=== PATIENT | female | born 1955 | race Caucasian/White ===

== ENCOUNTER → 2019-07-15 14:54 | Outpatient (BNVA) | payer MEDICAID, SELFPAY | PROVIDERS: Family Provider Family Medicine; PCP Family Medicine; Visit Provider Nurse Practitioner | DX: F43.12 Post-traumatic stress disorder, chronic (principal); F03.90 Unspecified dementia, unspecified severity, without behavioral disturbance, psychotic disturbance, mood disturbance, and anxiety | CPT/HCPCS: 99213 ==

== ENCOUNTER 2019-08-19 16:11 | Outpatient (CLI) | payer MEDICAID, SELFPAY | END 2019-08-19 16:12 | disposition home or self-care (01) | LOC: SPT 16:11 | PROVIDERS: Family Provider Family Medicine; PCP Family Medicine; Visit Provider Podiatrist Foot & Ankle Surgery | DX: M25.871 Other specified joint disorders, right ankle and foot (principal) | CPT/HCPCS: L3100 ==

== ENCOUNTER 2019-09-26 01:14 | Emergency (ER) | payer MEDICAID, SELFPAY ==
[2019-09-26 01:28] VITALS: BP 143/93; PULSE 101; RESP 18; TEMP 36.2; O2SAT 94; BMI 28.7
--- NOTE | 2019-09-26 01:31 | XR_ITS ---
WS: [id number] XR chest 1V portable [id number] REASON FOR EXAM: cough/congestion FINDINGS: Granulomas seen in the left side of the mediastinum. The heart is not enlarged. The lung fuentes appear to be well aerated. There is no pneumonia, pleural effusion, pulmonary edema, no mass effect. The hilum is and apices are normal. Postop changes of the lower cervical spine with a plate in position. No osseous abnormalities. XR/XR chest 1V portable [id number] IMPRESSION: Granuloma along the mediastinum on the left. No active cardiopulmonary changes.
--- NOTE | 2019-09-26 01:32 | ECG_ITS ---
Measurements Intervals [place] Rate: 92 P: 54 AR: 217 QRS: 17 QRSD: 110 T: 84 QT: 366 QTc: 453 SINUS RHYTHM WITH FIRST DEGREE AV BLOCK NONSPECIFIC ST & T-WAVE ABNORMALITY Compared to ECG 06/19/2019 08:13:54 No significant changes Electronically Signed On 09-26-2019 12:45:01 CDT by Mitchell Nobles [id number]
--- NOTE | 2019-09-26 01:33 | ED_ITS ---
HPI - Abdominal Pain General: Chief Complaint: Abdominal Pain Stated Complaint: n/v Time Seen by Provider: 09/26/19 01:22 Source: patient and family Mode of arrival: ambulatory Limitations: no limitations History of Present Illness: HPI narrative: Patient is a 63-year-old female who presents to ED today with multiple medical complaints. She states she has had nausea and vomiting over the past 2 days and reports a total of 5-6 episodes of vomiting. She describes the vomit as nonbloody and nonbilious. She is complaining of abdominal pain and chest pains. When asked to point to the location she points to her epigastrium. Patient states she also feels short of breath. She states she woke up in the middle of the night gasping for air . States she has also had a cough. She often refers to her chest pains but again points more towards her upper abdomen. Patient reports a history of CHF. Patient denies any changes to her bowel movements or urinary habits. She has not been running fevers. Associated Symptoms: Reports nausea and vomiting; Denies change in bowel habits, change in stool character, chills, diarrhea, dysuria, fever(s), hematochezia, melena and syncope Review of Systems Const: Denies: fever, chills, body aches, change in appetite, change in weight, fatigue or malaise Eyes: Denies: change in vision, blurry vision or photophobia ENMT: Denies: throat pain, enlarged tonsils or painful swallowing Card: Reports: chest pain; Denies: palpitations, irregular heart rhythm, edema, swelling of feet/ankles, lightheadedness, syncope, pre-syncope, shortness of breath when lying down, leg pain with exertion or bluish discoloration of hands/feet Resp: Reports: shortness of breath, non-productive cough and chest congestion; Denies: pain on inspiration or coughing up blood GI: Reports: abdominal pain, nausea and vomiting; Denies: diarrhea, change in bowel habits, rectal itching, change in stool character, blood in stool, black tarry stool, mucus in stool, white/light colored stool or fatty stool : Denies: flank pain, difficulty urinating, painful urination, urinary frequency or urinary urgency Musc: Denies: neck pain or back pain Skin/Breast: Denies: rash Neuro: Denies: headache, numbness in extremities, weakness in extremities or changes in sensation PFSH ED PFSH: Medical History (Updated 09/26/19 @ 03:10 by VU Lemus) CHF (congestive heart failure) Early onset Alzheimer's dementia Hypertension Post-traumatic stress disorder, chronic Type 2 diabetes mellitus Unspecified dementia without behavioral disturbance Surgical History (Updated 08/23/19 @ 23:01 by Amador Rodríguez DPM) H/O removal of cyst History of partial hysterectomy Social History Smoking and tobacco status: never smoked Alcohol intake: never Current occupational status: unemployed Physical Exam Const: COMMON NORMALS: no apparent distress, average body habitus, oriented x3, no limitations, healthy appearing, alert and well nourished Chest: COMMONS NORMALS: inspection of chest normal and palpation of chest normal Resp: COMMON NORMALS: normal respiratory effort and clear to auscultation bilaterally AUSCULTATION: clear to auscultation bilaterally Cardio: COMMON NORMALS: regular rate and regular rhythm RATE: regular rate RHYTHM: regular rhythm GI: COMMON NORMALS: normal to inspection, nondistended, normoactive bowel sounds, soft to palpation, no hepatosplenomegaly and no masses PALPATION: Yes soft, Yes tender (epigastric ) and Yes no hepatosplenomegaly Extremity: COMMON NORMALS: no clubbing, cyanosis or edema, no calf tenderness and no pedal edema Neuro: COMMON NORMALS: oriented x3 SENSORIUM/ORIENTATION: Yes alert Skin: COMMON NORMALS: no rashes or lesions noted GENERAL SKIN EXAM: no rashes or lesions noted Course Vital Signs: Vital signs: Vital Signs Temperature 97.2 F L 09/26/19 01:28 Pulse Rate 100 09/26/19 02:48 Respiratory Rate 18 09/26/19 02:48 Blood Pressure 136/102 09/26/19 02:48 Pulse Oximetry 96 09/26/19 02:48 MDM - Abdominal Pain MDM Narrative: Medical decision making narrative: pt ambulated out of ED w/o assistance Lab Data: Labs: Lab Results 09/26/19 09/26/19 09/26/19 Range/Units 01:45 01:45 01:45 WBC 6.8 (4.0-10.0) 10^3/ uL RBC 4.26 (4.1-5.3) 10^6/u L Hgb 12.1 (11.5-15.3) g/dL Hct 35.9 L (37.0-47.0) % MCV 84.3 (81-99) fL MCH 28.4 (28.0-34.0) pg MCHC 33.7 (30.0-36.0) g/dL RDW 12.5 (12.1-15.1) % Plt Count 174 (130-400) 10^3/c mm MPV 10.7 H (7.4-10.4) fL Neut % (Auto) 62.3 % Lymph % (Auto) 27.4 % Cocke % (Auto) 5.2 % Eos % (Auto) 4.4 % Baso % (Auto) 0.4 % Neut # (Auto) 4.2 (1.8-7.7) 10^3/u L Lymph # (Auto) 1.9 (0.8-4.8) 10^3/u L Cocke # (Auto) 0.4 (0.2-0.9) 10^3/u L Eos # (Auto) 0.3 (0.0-0.8) 10^3/u L Baso # (Auto) 0.0 (0.0-0.1) 10^3/u L Nucleated RBC % (a uto) 0 % Nucleated RBCs # 0.0 /100WBC Sodium 132 L (136-145) mmol/L Potassium 3.8 (3.5-5.1) mmol/L Chloride 97 L (98-107) mmol/L Carbon Dioxide 26 (22-29) mmol/L Anion Gap 12.8 (5-19) BUN 19 (8-23) mg/dL Creatinine 1.0 H (0.5-0.9) mg/dL GFR Calculation 55.8 L (90-130) mL/min Glucose 406 H (65-115) mg/dL POC Glucose (70-110) mg/dL Calculated Osmolal ity 288 (285-295) mOsm/k g Calcium 8.9 (8.5-10.5) mg/dL Total Bilirubin 0.3 (0.15-1.2) mg/dL AST 15 (0-32) U/L ALT 18 (0-33) U/L Alkaline Phosphata se 105 (35-105) IU/L Troponin T Gen 5 n g/L (0-10) ng/mL Total Protein 7.1 (6.6-8.7) g/dL Albumin 3.6 (3.5-5.2) g/dL Globulin 3.5 (1.3-4.6) g/dL Lipase 78 H (13-60) U/L Urine Color (Yellow) Urine Appearance (CLEAR) Urine pH (5-7) Ur Specific Gravit y (1.005-1.030) Urine Protein (Negative) Urine Glucose (UA) (Normal) Urine Ketones (Negative) Urine Blood (Negative) Urine Nitrate (Negative) Urine Bilirubin (NEGATIVE) Urine Urobilinogen (Negative) mg/dL Ur Leukocyte Yina ase (Negative) Urine RBC (0-2) /hpf Urine WBC (0-5) /hpf Ur Squamous Epith Cells (0-5) Ur Renal Epithelia l Cell /hpf Urine Bacteria (NONE) Serum Ketones Negative (Negative) 09/26/19 09/26/19 09/26/19 Range/Units 01:45 02:33 03:07 WBC (4.0-10.0) 10^3/ uL RBC (4.1-5.3) 10^6/u L Hgb (11.5-15.3) g/dL Hct (37.0-47.0) % MCV (81-99) fL MCH (28.0-34.0) pg MCHC (30.0-36.0) g/dL RDW (12.1-15.1) % Plt Count (130-400) 10^3/c mm MPV (7.4-10.4) fL Neut % (Auto) % Lymph % (Auto) % Cocke % (Auto) % Eos % (Auto) % Baso % (Auto) % Neut # (Auto) (1.8-7.7) 10^3/u L Lymph # (Auto) (0.8-4.8) 10^3/u L Cocke # (Auto) (0.2-0.9) 10^3/u L Eos # (Auto) (0.0-0.8) 10^3/u L Baso # (Auto) (0.0-0.1) 10^3/u L Nucleated RBC % (a uto) % Nucleated RBCs # /100WBC Sodium (136-145) mmol/L Potassium (3.5-5.1) mmol/L Chloride (98-107) mmol/L Carbon Dioxide (22-29) mmol/L Anion Gap (5-19) BUN (8-23) mg/dL Creatinine (0.5-0.9) mg/dL GFR Calculation (90-130) mL/min Glucose (65-115) mg/dL POC Glucose 326 (70-110) mg/dL Calculated Osmolal ity (285-295) mOsm/k g Calcium (8.5-10.5) mg/dL Total Bilirubin (0.15-1.2) mg/dL AST (0-32) U/L ALT (0-33) U/L Alkaline Phosphata se (35-105) IU/L Troponin T Gen 5 n g/L 10 (0-10) ng/mL Total Protein (6.6-8.7) g/dL Albumin (3.5-5.2) g/dL Globulin (1.3-4.6) g/dL Lipase (13-60) U/L Urine Color Yellow (Yellow) Urine Appearance Hazy A (CLEAR) Urine pH 5 (5-7) Ur Specific Gravit y 1.020 (1.005-1.030) Urine Protein Neg (Negative) Urine Glucose (UA) 4+ H (Normal) Urine Ketones Negative (Negative) Urine Blood Neg (Negative) Urine Nitrate Negative (Negative) Urine Bilirubin Neg (NEGATIVE) Urine Urobilinogen Norm (Negative) mg/dL Ur Leukocyte Yina ase Negative (Negative) Urine RBC 0-4 H (0-2) /hpf Urine WBC None (0-5) /hpf Ur Squamous Epith Cells 0-4 H (0-5) Ur Renal Epithelia l Cell 0 /hpf Urine Bacteria Trace (NONE) Serum Ketones (Negative) Imaging Data ^: CXR: My impression: NAD L hip/pelvis XR: My impression: NAD L femur XR: My impression: NAD Discharge Plan Discharge Patient Disposition: Home, Self-Care Clinical Impression: Abdominal pain, epigastric Uncontrolled diabetes mellitus Qualifiers: Diabetes mellitus type: type 2 Glycemic state: with hyperglycemia Qualified Code(s): E11.65 - Type 2 diabetes mellitus with hyperglycemia Condition: Stable Prescriptions: No Action (DME) Toe alignment splint Qty: 1 RF: 0 ropinirole 1 mg tablet 1 mg PO BID RF: 0 simvastatin 20 mg tablet 20 mg PO ONCE RF: 0 glimepiride 1 mg tablet 1 mg PO QAM RF: 0 aripiprazole [Abilify] 2 mg tablet 2 mg PO ONCE Qty: 30 RF: 2 citalopram [Celexa] 20 mg tablet 20 mg PO ONCE Qty: 30 RF: 2 prazosin 1 mg capsule 1 mg PO DAILY Qty: 30 RF: 2 lorazepam 0.5 mg tablet 0.5 mg PO DAILY PRN (Reason: anxiety) Qty: 30 RF: 2 zaleplon 5 mg capsule 5 mg PO .at bed Qty: 30 RF: 2 amitriptyline 75 mg tablet 75 mg PO .at bed Qty: 30 RF: 0 Discharge Orders: Discharge Order (Routine); Ordered 09/26/19 Ordered By: Melissa Johnson Referrals: Maritza Butterfield MD [Primary Care Provider] - Activity Restrictions/Additional Instructions: Follow up with primary care at your scheduled appointment next week. Return to ED for any concerns you may have until then. Coding Level of Care Code ED Food Safety Technician for [employer] Fwd Exam Detailed
[2019-09-26] MEDS: sodium chloride 0.9% 1,000 ML 999 ML IV (01:53)
[2019-09-26] MEDS: ondansetron 2 mg/ML SDV 2 mL 4 MG IVP (01:53)
[2019-09-26 02:06] LABS: Basophils % 0.4 %; Eosinophils # 0.3 10^3/uL (0.0-0.8); Eosinophils % 4.4 %; Hematocrit 35.9 % (37.0-47.0); Hemoglobin 12.1 g/dL (11.5-15.3); Lymphocytes # 1.9 10^3/uL (0.8-4.8); Lymphocytes % 27.4 %; Mean Corpuscular HGB Conc 33.7 g/dL (30.0-36.0); Mean Corpuscular Hemoglobin 28.4 pg (28.0-34.0); Mean Corpuscular Volume 84.3 fL (81-99); Mean Platelet Volume 10.7 fL (7.4-10.4); Monocytes # 0.4 10^3/uL (0.2-0.9); Monocytes % 5.2 %; Neutrophils # 4.2 10^3/uL (1.8-7.7); Neutrophils % 62.3 %; Nucleated Red Blood Cells % 0 %; Platelet Count 174 10^3/cmm (130-400); Red Blood Count 4.26 10^6/uL (4.1-5.3); Red Cell Distribution Width 12.5 % (12.1-15.1); White Blood Count 6.8 10^3/uL (4.0-10.0)
[2019-09-26 02:20] LABS: Alanine Aminotransferase 18 U/L (0-33); Albumin Level 3.6 g/dL (3.5-5.2); Alkaline Phosphatase 105 IU/L (35-105); Anion Gap 12.8 (5-19); Aspartate Amino Transferase 15 U/L (0-32); Blood Urea Nitrogen 19 mg/dL (8-23); Calcium 8.9 mg/dL (8.5-10.5); Carbon Dioxide 26 mmol/L (22-29); Chloride 97 mmol/L (98-107); Globulin 3.5 g/dL (1.3-4.6); Glomerular Filtration Rate 55.8 mL/min (90-130); Glucose 406 mg/dL (65-115); Lipase 78 U/L (13-60); Osmolality Calculated 288 mOsm/kg (285-295); Potassium 3.8 mmol/L (3.5-5.1); Sodium 132 mmol/L (136-145); Total Bilirubin 0.3 mg/dL (0.15-1.2); Total Protein 7.1 g/dL (6.6-8.7)
[2019-09-26 02:25] LABS: Ketone (Acetest) Serum Negative (Negative)
[2019-09-26 02:48] VITALS: BP 136/102; PULSE 100; RESP 18; O2SAT 96
[2019-09-26] MEDS: lidocaine 2% viscous 15 ML, aluminum-mag hydrox-simethicon 30 ML, sucralfate oral liq 1 GM PO (02:52)
[2019-09-26 02:53] LABS: Add Urine Microscopic? YES; Bilirubin Urine Neg (NEGATIVE); Blood Urine Neg (Negative); Glucose Urine UA 4+ (Normal); Ketones Urine Negative (Negative); Leukocyte Esterase Urine Negative (Negative); Nitrate Urine Negative (Negative); Protein Urine Neg (Negative); Urine Appearance Hazy (CLEAR); Urine Color Yellow (Yellow); Urobilinogen Urine Norm (Negative); pH Urine 5 (5-7)
[2019-09-26 02:56] LABS: Troponin T (5th) Once 10 ng/mL (0-10)
[2019-09-26 03:06] LABS: Add Urine Culture? No; Bacteria Urine TRACE; RBC Urine 0-4 /hpf (0-2); Renal Epithelial Cells Urine 0 /hpf; Squamous Epithelial Cell Urine 0-4 (0-5)
[2019-09-26 03:10] LABS: Glucose Point of Care 326 mg/dL (70-110)
[2019-09-26 03:22] VITALS: BP 129/79; PULSE 95; RESP 18; O2SAT 96
== END 2019-09-26 03:23 | disposition home or self-care (01) ==
PROVIDERS: Emergency Provider Physician Assistant; Family Provider Family Medicine; PCP Family Medicine
DX: R10.13 Epigastric pain (principal); I11.0 Hypertensive heart disease with heart failure; I50.9 Heart failure, unspecified; G30.0 Alzheimer's disease with early onset; F02.80 Dementia in other diseases classified elsewhere, unspecified severity, without behavioral disturbance, psychotic disturbance, mood disturbance, and anxiety; E11.65 Type 2 diabetes mellitus with hyperglycemia; Z79.84 Long term (current) use of oral hypoglycemic drugs
CPT/HCPCS: 12345; 36415; 36416; 71045; 80053; 81001; 82009; 82962; 83690; 84484; 85025; 93005; 93010; 96361; 96372; 96374; 96375; 99283; 99284; A9270; J1815; J2405; J7030

== ENCOUNTER → 2019-11-05 08:13 | Outpatient (BNVA) | payer MEDICAID, SELFPAY | PROVIDERS: Family Provider Family Medicine; PCP Family Medicine; Visit Provider Nurse Practitioner | DX: F43.12 Post-traumatic stress disorder, chronic (principal); F03.90 Unspecified dementia, unspecified severity, without behavioral disturbance, psychotic disturbance, mood disturbance, and anxiety; F41.1 Generalized anxiety disorder | CPT/HCPCS: 99213 ==

== ENCOUNTER → 2020-01-15 12:15 | Outpatient (BNVA) | payer MEDICAID, SELFPAY | PROVIDERS: Family Provider Family Medicine; PCP Family Medicine; Visit Provider Specialist | DX: G30.0 Alzheimer's disease with early onset (principal); F02.80 Dementia in other diseases classified elsewhere, unspecified severity, without behavioral disturbance, psychotic disturbance, mood disturbance, and anxiety | CPT/HCPCS: 99213 ==

== ENCOUNTER → 2020-01-21 08:01 | Outpatient (BNVA) | payer MEDICAID, SELFPAY | PROVIDERS: Family Provider Family Medicine; PCP Family Medicine; Visit Provider Nurse Practitioner | DX: F43.12 Post-traumatic stress disorder, chronic (principal) | CPT/HCPCS: 99214 ==

== ENCOUNTER 2020-06-27 13:47 | Emergency (ER) | payer MEDICAID, SELFPAY ==
[2020-06-27 14:03] VITALS: BP 151/67; PULSE 66; RESP 16; TEMP 36.6; O2SAT 99; BMI 18.4
--- NOTE | 2020-06-27 14:32 | XRR_ITS ---
PROCEDURE INFORMATION: Exam: XR Ribs with PA Chest, 4 Views Exam date and time: 06/27/2020 2:43 PM Age: 64 years old Clinical indication: Injury or trauma; Fall; Rib area, bilateral; Blunt trauma; Additional info: Fall, chest pain TECHNIQUE: Imaging protocol: XR bilateral ribs 4 views with PA chest. COMPARISON: CR XR chest 1V portable [id number] 09/26/2019 1:40 AM FINDINGS: Lungs: The lungs are clear. Pleural space: Unremarkable. No pleural effusion. No pneumothorax. Heart/Mediastinum: The heart is enlarged. Diaphragm: There is unchanged elevation of the right hemidiaphragm. Bones/joints: There is a satisfactory appearance of the postoperative cervical spine. There is a subtle lucent line in the posterolateral right 7th rib concerning for subtle fracture versus skin fold. No acute fracture of the left ribs is identified. There are moderate degenerative changes in the spine. XR/XR ribs BI mn 4V w CXR1V [id number] IMPRESSION: There is a subtle lucent line in the posterolateral right 7th rib concerning for subtle fracture versus skin fold. No additional acute fracture. The lungs are clear.
--- NOTE | 2020-06-27 14:32 | CTR_ITS ---
PROCEDURE INFORMATION: Exam: CT Maxillofacial Without Contrast Exam date and time: 06/27/2020 2:44 PM Age: 64 years old Clinical indication: Injury or trauma; Blunt trauma (contusions or hematomas); Forehead and nose; Patient HX: Fall from standing hitting R side of face and nose C/O XAVIER denies loc; Additional info: Fall, facial injuries TECHNIQUE: Imaging protocol: Computed tomography images of the face without contrast. Radiation optimization: All CT scans at this facility use at least one of these dose optimization techniques: automated exposure control; mA and/or kV adjustment per patient size (includes targeted exams where dose is matched to clinical indication); or iterative reconstruction. COMPARISON: No relevant prior studies available. RADIATION DOSE METRICS: Total DLP (mGy-cm): 673.56 FINDINGS: Orbital cavity: Orbits are normal. Globes are unremarkable. Bones/joints: There are mildly impacted comminuted fractures of the distal nasal bones. There is a fracture of the distal nasal septum with deviation to the left. Bilateral orbital yoder are intact. The zygoma, pterygoids and mandible are intact. There is a satisfactory appearance of the postoperative changes in the cervical spine. Paranasal sinuses: There is a mucous retention cyst in the left maxillary sinus. There are no air-fluid levels in the sinuses. Soft tissues: There is soft tissue edema overlying the right face and nose. Dental: A few teeth are identified in the mandible and there is periapical lucency surrounding the posterior-most tooth on the right and the 2nd tooth left of midline image 12. Multiple dental caries are noted in the remaining teeth especially the posterior-most tooth on the right and the last 3 posterior teeth on the left. Probable smaller dental caries are noted in the remaining teeth in the mandible. CT/CT facial bones wo con* [id number] IMPRESSION: 1. There are mildly impacted comminuted fractures of the distal nasal bones. There is also a fracture of the distal nasal septum. 2. There is soft tissue edema overlying the right face and nose. 3. Multiple dental caries involving the remaining teeth in the mandible with 2 areas of periapical lucency. Radiation Dose CTDIVOL = (mGy): DLP = 673.56 (mGy-cm)
--- NOTE | 2020-06-27 14:32 | XRR_ITS ---
PROCEDURE INFORMATION: Exam: XR Bilateral Hips with Pelvis when Performed Exam date and time: 06/27/2020 2:43 PM Age: 64 years old Clinical indication: Injury or trauma; Fall; Blunt trauma (contusions or hematomas); Bilateral; Hip; Additional info: Fall, hip pain. TECHNIQUE: Imaging protocol: XR bilateral hips with pelvis when performed. Views: 2 views. COMPARISON: CR Pelvis AP 1 or 2 views* [id number] 08/03/2018 12:37 AM FINDINGS: Bones/joints: Unremarkable. No acute fracture. Unchanged mild degenerative changes left hip and moderate degenerative changes right hip with an os acetabula are noted. There is unchanged subtle deformity of the right superior and inferior pubic rami suspected be remote old fractures. Soft tissues: Unremarkable. XR/XR hip BI 2V wo/w pel [id number] IMPRESSION: No acute findings. Unchanged exam with stable degenerative changes.
--- NOTE | 2020-06-27 14:54 | ED_ITS ---
HPI - Fall General: Chief Complaint: Fall Stated Complaint: FELL, FACIAL INJURIES Time Seen by Provider: 06/27/20 14:08 Source: patient Mode of arrival: ambulatory Limitations: no limitations History of Present Illness: HPI Narrative: Patient is a 64-year-old lady and when she got up from a sitting position tripped over a table and fell face first on the carpet. She has some abrasions to the right side of her face. She denies any loss of consciousness. She is not on any anticoagulants. She has pain on her face especially her nose. She cannot remember the last time she had a tetanus vaccine. complaint: fall Onset (ago): hour(s) (1) Fall from: standing Place fall occurred: home Loss of consciousness: None Prolonged down time: no Symptoms prior to fall: none Context: tripped/slipped Location of injury: head Quality: sharp Associated symptoms-after fall: Denies abdominal pain, chest pain, confusion, difficulty walking, headache(s), hematuria, lightheadedness, neck pain, numbness, short of breath, vertigo or weakness Review of Systems General: Reports: 10 or more systems reviewed and unremarkable except in HPI and below Const: Denies: fever(s), chills or body aches Eyes: Denies: change in vision or blurry vision ENMT: Denies: throat pain, enlarged tonsils, odynophagia, hoarseness, mouth pain or swelling of lips/tongue Card: Denies: chest pain or lightheadedness Resp: Denies: dyspnea, productive cough or non-productive cough GI: Denies: abdominal pain : Denies: hematuria Musc: Denies: neck pain Skin/Breast: Denies: rash, pruritus or erythema Neuro: Denies: headache(s), difficulty walking, vertigo or confusion Endo: Denies: polyuria, polydipsia or tired all the time [facility] ED PFSH: Medical History (Updated 06/27/20 @ 16:30 by Reinaldo Herr MD, [facility] [place] CHF (congestive heart failure) Early onset Alzheimer's dementia Hypertension Post-traumatic stress disorder, chronic Type 2 diabetes mellitus Unspecified dementia without behavioral disturbance Surgical History (Reviewed 06/27/20 @ 14:59 by Reinaldo Herr MD, [facility] [place]) H/O removal of cyst History of partial hysterectomy Social History (Reviewed 06/27/20 @ 14:59 by Reinaldo Herr MD, [facility] [place]) Smoking and tobacco status: never smoked Alcohol intake: never Current occupational status: unemployed Physical Exam Const: COMMON NORMALS: no acute distress, average body habitus, patient oriented x3, no limitations, healthy appearing, alert and well nourished HENMT: COMMON NORMALS: normocephalic and moist oral mucous membranes; external nose not normal (abrasion) HEAD & SCALP: normocephalic and abrasion (right side of her face and forehead and nasal bridge) NOSE: Normal septum present (no septal hematoma) and Abnormal external nose present nasal abrasion and nasal tenderness; external nose not normal (abrasion) Eye: COMMON NORMALS: Equal, round and reactive pupils present, EOMs intact bilaterally, conjunctivae normal and no scleral icterus CONJUNCTIVA: Yes conjunctivae normal PUPIL: Yes Equal, round and reactive pupils present Neck/C-Spine: COMMON NORMALS: full ROM, supple, no meningeal signs, no JVD and No carotid bruits CERVICAL SPINE: Yes cervical ROM normal, No cervical ROM abnormal, No pain with cervical ROM and No Cervical spine tenderness Chest: COMMONS NORMALS: normal inspection of the chest CHEST: Yes localized rib tenderness with anteroposterior compression and Yes tenderness Resp: COMMON NORMALS: normal respiratory effort, No retractions, No use of accessory muscles, clear to auscultation bilaterally and percussion normal AUSCULTATION: clear to auscultation bilaterally PERCUSSION: percussion normal Cardio: COMMON NORMALS: no JVD, regular rate, regular rhythm, S1 normal heart sound present, S2 normal heart sound present, No gallops present (Cardio), No clicks present (Cardio), No murmurs present (Cardio), No rub (Cardio) and Peripheral pulses 2+ throughout RATE: regular rate RHYTHM: regular rhythm HEART SOUNDS: S1 normal heart sound present and S2 normal heart sound present PERIPHERAL PULSES: Peripheral pulses 2+ throughout GI: COMMON NORMALS: Normal to inspection, nondistended, normoactive bowel sounds present, Soft to palpation, non-tender, No hepatosplenomegaly present, no masses and no bruits PALPATION: Yes Soft to palpation and Yes No hepatosplenomegaly present Back/Pelvis: PELVIS: pain with lateral compression (tender with lateral compression.) Extremity: COMMON NORMALS: normal to inspection, full ROM, capillary refill normal, no calf tenderness and no pedal edema Neuro: COMMON NORMALS: patient oriented x3 SENSORIUM/ORIENTATION: Yes alert MENINGEAL SIGNS: Yes no meningeal signs Skin: COMMON NORMALS: no rashes or lesions noted, no wounds, turgor normal, no jaundice, no petechiae and no mottling GENERAL SKIN EXAM: no rashes or lesions noted and turgor normal Course Reevaluation(s): Reevaluation #1: Discussed her imaging findings with her as well as my conversation with the PA for maxillofacial surgery. Explained that she has nasal bone fractures as well as a possible rib fracture. Will discharge her home with a prescription for pain medication as well as instructions for nasal fractures. She will follow-up with the maxillofacial surgery provider on Monday at 10:30 AM in [place]. She voiced understanding and she is in agreement with the plan. Time: 16:12 Consultations: Consultation #1: Discussed the patient with Willow Garibay, a physician's public aid eligibility assistant to the maxillofacial surgeon chief [facility] division. She advised that the patient be seen in the office on Monday in their clinic at 10:30 AM. The patient will be seeing her. Patient is to have the usual precautions given to patient with nasal fractures. Time: 15:58 Vital Signs: Vital signs: Vital Signs Temperature 97.9 F 06/27/20 14:03 Pulse Rate 66 06/27/20 14:03 Respiratory Rate 18 06/27/20 16:58 Blood Pressure 151/67 06/27/20 14:03 Pulse Oximetry 99 06/27/20 14:03 MDM - Fall MDM Narrative: Medical decision making narrative: 64-year-old female patient w ho tripped and fell today. She sustained nasal bone and nasal septum fractures as well as a possible right seventh rib fracture. No other significant injuries and she had no septal hematoma. She is discharged home with a prescription for pain medication, is to follow-up with a maxillofacial surgeon on Monday at 10:30 AM, is given instructions on how to care for her nasal fractures as well as wound care for her abrasions. Medical Records: Attestation: I reviewed the patient's medical records. Imaging Data^: Other CT: Radiologist's impression: [address] [address] [address] Scan Report Signed Patient: Stacie Patten #: [id number] : 5Acct#:[id number] Age/Sex: 64 / FADM Date: 06/27/20 Loc: ERRoom/Bed: Attending Dr: Ordering Provider/Ordering MD: Reinaldo Herr MD, LUCIE Date of Service: 06/27/20 Procedure(s): CT facial bones wo con* [id number] Accession Number(s): [id number] Report Number: [id number] PROCEDURE INFORMATION: Exam: CT Maxillofacial Without Contrast Exam date and time: 06/27/2020 2:44 PM Age: 64 years old Clinical indication: Injury or trauma; Blunt trauma (contusions or hematomas); Forehead and nose; Patient HX: Fall from standing hitting R side of face and nose C/O XAVIER denies loc; Additional info: Fall, facial injuries TECHNIQUE: Imaging protocol: Computed tomography images of the face without contrast. Radiation optimization: All CT scans at this facility use at least one of these dose optimization techniques: automated exposure control; mA and/or kV adjustment per patient size (includes targeted exams where dose is matched to clinical indication); or iterative reconstruction. COMPARISON: No relevant prior studies available. RADIATION DOSE METRICS: Total DLP (mGy-cm): 673.56 FINDINGS: Orbital cavity: Orbits are normal. Globes are unremarkable. Bones/joints: There are mildly impacted comminuted fractures of the distal nasal bones. There is a fracture of the distal nasal septum with deviation to the left. Bilateral orbital yoder are intact. The zygoma, pterygoids and mandible are intact. There is a satisfactory appearance of the postoperative changes in the cervical spine. Paranasal sinuses: There is a mucous retention cyst in the left maxillary sinus. There are no air-fluid levels in the sinuses. Soft tissues: There is soft tissue edema overlying the right face and nose. Dental: A few teeth are identified in the mandible and there is periapical lucency surrounding the posterior-most tooth on the right and the 2nd tooth left of midline image 12. Multiple dental caries are noted in the remaining teeth especially the posterior-most tooth on the right and the last 3 posterior teeth on the left. Probable smaller dental caries are noted in the remaining teeth in the mandible. CT/CT facial bones wo con* [id number] IMPRESSION: 1. There are mildly impacted comminuted fractures of the distal nasal bones. There is also a fracture of the distal nasal septum. 2. There is soft tissue edema overlying the right face and nose. 3. Multiple dental caries involving the remaining teeth in the mandible with 2 areas of periapical lucency. Radiation Dose CTDIVOL = (mGy): DLP = 673.56 (mGy-cm) Dictated By:Bernice Victor Signed By:Lc Victor Date/Time:06/27/201516 DD/ 14 Xray Ortho: Radiologist's impression: [address] [address] XRay Report Signed Patient: Stacie Patten #: [id number] : 5Acct#:[id number] Age/Sex: 64 / FADM Date: 06/27/20 Loc: ERRoom/Bed: Attending Dr: Ordering Provider/Ordering MD: Reinaldo Herr MD, [facility] [place] Date of Service: 06/27/20 Procedure(s): XR hip BI 2V wo/w pel [id number] Accession Number(s): [id number] Report Number: [id number] PROCEDURE INFORMATION: Exam: XR Bilateral Hips with Pelvis when Performed Exam date and time: 06/27/2020 2:43 PM Age: 64 years old Clinical indication: Injury or trauma; Fall; Blunt trauma (contusions or hematomas); Bilateral; Hip; Additional info: Fall, hip pain. TECHNIQUE: Imaging protocol: XR bilateral hips with pelvis when performed. Views: 2 views. COMPARISON: CR Pelvis AP 1 or 2 views* [id number] 08/03/2018 12:37 AM FINDINGS: Bones/joints: Unremarkable. No acute fracture. Unchanged mild degenerative changes left hip and moderate degenerative changes right hip with an os acetabula are noted. There is unchanged subtle deformity of the right superior and inferior pubic rami suspected be remote old fractures. Soft tissues: Unremarkable. XR/XR hip BI 2V wo/w pel [id number] IMPRESSION: No acute findings. Unchanged exam with stable degenerative changes. Dictated By:Bernice Victor Signed By:Lc Victor Date/Time:06/27/20 152 DD/ 1520 Other Xray: Radiologist's impression: [address] [address] XRay Report Signed Patient: Stacie Patten #: [id number] : 5Acct#:[id number] Age/Sex: 64 / FADM Date: 06/27/20 Loc: ERRoom/Bed: Attending Dr: Ordering Provider/Ordering MD: Reinaldo Herr MD, [facility] [place] Date of Service: 06/27/20 Procedure(s): XR ribs BI mn 4V w CXR1V 35894 Accession Number(s): [id number] Report Number: [id number] PROCEDURE INFORMATION: Exam: XR Ribs with PA Chest, 4 Views Exam date and time: 06/27/2020 2:43 PM Age: 64 years old Clinical indication: Injury or trauma; Fall; Rib area, bilateral; Blunt trauma; Additional info: Fall, chest pain TECHNIQUE: Imaging protocol: XR bilateral ribs 4 views with PA chest. COMPARISON: CR XR chest 1V portable [id number] 09/26/2019 1:40 AM FINDINGS: Lungs: The lungs are clear. Pleural space: Unremarkable. No pleural effusion. No pneumothorax. Heart/Mediastinum: The heart is enlarged. Diaphragm: There is unchanged elevation of the right hemidiaphragm. Bones/joints: There is a satisfactory appearance of the postoperative cervical spine. There is a subtle lucent line in the posterolateral right 7th rib concerning for subtle fracture versus skin fold. No acute fracture of the left ribs is identified. There are moderate degenerative changes in the spine. XR/XR ribs BI mn 4V w CXR1V [id number] IMPRESSION: There is a subtle lucent line in the posterolateral right 7th rib concerning for subtle fracture versus skin fold. No additional acute fracture. The lungs are clear. Dictated By:Bernice Victor Signed By:Lc Victor Date/Time:06/27/20 152 DD/ 1523 Discharge Plan Discharge Patient Disposition: Home Clinical Impression: Fracture of nasal bone Qualifiers: Encounter type: initial encounter Fracture type: closed Qualified Code(s): S02.2XXA - Fracture of nasal bones, initial encounter for closed fracture Closed fracture of nasal septum Qualifiers: Encounter type: initial encounter Qualified Code(s): S02.2XXA - Fracture of nasal bones, initial encounter for closed fracture Fall Qualifiers: Encounter type: initial encounter Qualified Code(s): W19.XXXA - Unspecified fall, initial encounter Closed rib fracture Qualifiers: Encounter type: initial encounter Rib fracture type: single rib Laterality: right Qualified Code(s): S22.31XA - Fracture of one rib, right side, initial encounter for closed fracture Abrasion of face Qualifiers: Encounter type: initial encounter Qualified Code(s): S00.81XA - Abrasion of other part of head, initial encounter Condition: Stable Prescriptions: New Salix 5-325 mg tablet 1 tab PO Q8H PRN (Reason: nasal bone fracture) Qty: 20 RF: 0 Continued (DME) Toe alignment splint Qty: 1 RF: 0 glimepiride 1 mg tablet 1 mg PO QAM RF: 0 simvastatin 20 mg tablet 20 mg PO DAILY RF: 0 aspirin [Adult Aspirin Regimen] 81 mg tablet,delayed release (DR/EC) 81 mg PO DAILY RF: 0 furosemide [Lasix] 40 mg tablet 40 mg PO DAILY RF: 0 lisinopril 20 mg tablet 20 mg PO DAILY RF: 0 amitriptyline 100 mg tablet 100 mg PO .HS Qty: 30 RF: 2 aripiprazole [Abilify] 2 mg tablet 2 mg PO DAILY Qty: 30 RF: 2 citalopram [Celexa] 20 mg tablet 20 mg PO DAILY Qty: 30 RF: 2 lorazepam 0.5 mg tablet 0.5 mg PO DAILY PRN (Reason: anxiety) Qty: 30 RF: 2 prazosin 1 mg capsule 1 mg PO DAILY Qty: 30 RF: 2 ropinirole 1 mg tablet 1 mg PO BID Qty: 60 RF: 2 zaleplon 5 mg capsule 5 mg PO .at bed Qty: 30 RF: 2 memantine [Namenda] 10 mg tablet 10 mg PO BID Qty: 60 RF: 4 rivastigmine tartrate 4.5 mg capsule See Rx Instructions .ROUTE .COMPLEX Qty: 60 RF: 3 Discharge Orders: Discharge ED (Routine); Ordered 06/27/20 Ordered By: Reinaldo Herr Referrals: Maritza Butterfield MD [Primary Care Provider] - 4-7 days Discharge Diet: Usual diet Discharge Activity: Increase activity as tolerated Patient Instructions: Nasal Fracture (ED), Rib Fracture (ED), Abrasion (ED), Fall Prevention (ED) Activity Restrictions/Additional Instructions: Return for any new or worsening symptoms. Follow-up with the maxillofacial surgery at [facility] in [place] on Monday at 10:30 AM. You will follow with [facility] and the address is [address] [place] [address]. Their phone number is [phone]. Until you see them at [place] on Monday do not blow your nose, do not lean forward, obtain some [id number] nasal saline spray and use this to keep your nose moist and wet. You can apply ice to your nose to reduce the swelling. Clean your abrasions with soap and water every day and apply antibiotic ointment to the abrasions. Take the pain medication as needed for pain. Coding Level of Care Code ED Laboratory Animal Care Veterinarian for Chg Fwd Exam Comprehensive
[2020-06-27] MEDS: tetanus-dipt-pertussis 0.5 mL SDV IM (15:33)
[2020-06-27] MEDS: ketorolac 30 mg/mL INJ IM (16:17)
[2020-06-27] MEDS: neomycin-poly-bacitracin oint 0.9 gm Pkt 1 APPLIC TOPICAL (16:17)
[2020-06-27 16:58] VITALS: RESP 18
== END 2020-06-27 16:50 | disposition home or self-care (01) ==
PROVIDERS: Emergency Provider Family Medicine; PCP Family Medicine
DX: S02.2XXA Fracture of nasal bones, initial encounter for closed fracture (principal); S22.31XA Fracture of one rib, right side, initial encounter for closed fracture; S00.81XA Abrasion of other part of head, initial encounter; Z79.82 Long term (current) use of aspirin; I11.0 Hypertensive heart disease with heart failure; I50.9 Heart failure, unspecified; G30.9 Alzheimer's disease, unspecified; F02.80 Dementia in other diseases classified elsewhere, unspecified severity, without behavioral disturbance, psychotic disturbance, mood disturbance, and anxiety; E11.9 Type 2 diabetes mellitus without complications; Z23 Encounter for immunization; W18.09XA Striking against other object with subsequent fall, initial encounter
CPT/HCPCS: 12345; 70486; 71111; 73521; 73522; 90471; 90715; 96372; 99281; 99283; J1885

== ENCOUNTER 2020-08-02 00:10 | Emergency (ER) | payer MEDICAID, SELFPAY ==
[2020-08-02 00:11] VITALS: BP 100/67; PULSE 59; RESP 16; TEMP 36.5; O2SAT 95; BMI 28.8
--- NOTE | 2020-08-02 00:26 | CTR_ITS ---
PROCEDURE INFORMATION: Exam: CT Abdomen And Pelvis With Contrast Exam date and time: 08/02/2020 1:05 AM Age: 64 years old Clinical indication: Other: Diarrhea; Abdominal pain; Localized; Upper; Prior surgery; Surgery date: 6+ months; Surgery type: Gb, appy; Additional info: Abd pain, diarrhea TECHNIQUE: Imaging protocol: Computed tomography of the abdomen and pelvis with intravenous contrast. Radiation optimization: All CT scans at this facility use at least one of these dose optimization techniques: automated exposure control; mA and/or kV adjustment per patient size (includes targeted exams where dose is matched to clinical indication); or iterative reconstruction. Contrast material: VISI; Contrast volume: 95 ml; Contrast route: INTRAVENOUS (IV); COMPARISON: CT abdomen pelvis w con* [id number] 05/13/2018 12:07 PM RADIATION DOSE METRICS: Total DLP (mGy-cm): 559.4 FINDINGS: Liver: Normal. No mass. Gallbladder and bile ducts: Normal. No calcified stones. No ductal dilation. Pancreas: Normal. No ductal dilation. Spleen: Normal. No splenomegaly. Adrenal glands: Normal. No mass. Kidneys and ureters: Left kidney nonobstructive calyceal stone. Stomach and bowel: Diverticulosis without diverticulitis. Left colon mild wall thickening may reflect a colitis or be due to nondistention depending on the clinical scenario. Appendix: No evidence of appendicitis. Intraperitoneal space: Unremarkable. No free air. No significant fluid collection. Vasculature: Unremarkable. No abdominal aortic aneurysm. Lymph nodes: Unremarkable. No enlarged lymph nodes. Urinary bladder: Unremarkable as visualized. Reproductive: Unremarkable as visualized. Bones/joints: Unremarkable. No acute fracture. Soft tissues: Unremarkable. CT/CT abdomen pelvis w con* [id number] IMPRESSION: 1. Left colon mild wall thickening may reflect a colitis or be due to nondistention depending on the clinical scenario. 2. Left kidney nonobstructive calyceal stone. 3. Diverticulosis without diverticulitis. Radiation Dose CTDIVOL = (mGy): DLP = 559.4 (mGy-cm)
--- NOTE | 2020-08-02 00:27 | W.ED.ABDPA2 ---
HPI - Abdominal Pain General: Chief Complaint: Abdominal Pain Stated Complaint: n/v/d abd and abd pain Time Seen by Provider: 08/02/20 00:20 Source: patient Mode of arrival: ambulatory Limitations: no limitations History of Present Illness: HPI narrative: Patient comes in with generalized abdominal pain and diarrhea starting this afternoon. Patient reports worsening symptoms. Patient also reports headache. Patient appears Mildly unwell. Patient appears in mild pain. Associated Symptoms: Reports diarrhea Review of Systems General: Reports: 10 or more systems reviewed and unremarkable except in HPI and below GI: Reports: abdominal pain and diarrhea Neuro: Reports: headache(s) PFSH ED PFSH: Medical History (Updated 08/02/20 @ 01:47 by LAURO Rasmussen) CHF (congestive heart failure) Early onset Alzheimer's dementia Hypertension Post-traumatic stress disorder, chronic Type 2 diabetes mellitus Unspecified dementia without behavioral disturbance Surgical History (Reviewed 06/27/20 @ 14:59 by Reinaldo Herr MD, [facility] [place]) H/O removal of cyst History of partial hysterectomy Social History (Reviewed 06/27/20 @ 14:59 by Reinaldo Herr MD, [facility] [place]) Smoking and tobacco status: never smoked Alcohol intake: never Current occupational status: unemployed Physical Exam Const: COMMON NORMALS: no acute distress and patient oriented x3 GENERAL APPEARANCE: cooperative HENMT: COMMON NORMALS: normocephalic, TM's normal bilaterally and Normal external nose present HEAD & SCALP: normal to inspection and normocephalic NOSE: Normal external nose present TYMPANIC MEMBRANE: TM's normal bilaterally MOUTH: Normal oral and palatal mucosa present THROAT: posterior oropharynx normal Eye: GENERAL EYE: appearance normal, both eyes and all related structures Neck/C-Spine: COMMON NORMALS: full ROM Lymph: LYMPHATIC: no lymphadenopathy noted Chest: COMMONS NORMALS: normal inspection of the chest Resp: COMMON NORMALS: normal respiratory effort EFFORT & INSPECTION: Yes able to speak in complete sentences Cardio: COMMON NORMALS: regular rate and regular rhythm RATE: regular rate RHYTHM: regular rhythm GI: COMMON NORMALS: Soft to palpation PALPATION: Yes Soft to palpation and Yes Tenderness to palpation present (GI) Back/Pelvis: COMMON NORMALS: thoracic and lumbar spine normal to inspection Extremity: COMMON NORMALS: normal to inspection Neuro: COMMON NORMALS: patient oriented x3 and moves all extremities Psych: COMMON NORMALS: mental status grossly normal and cooperative Skin: COMMON NORMALS: no rashes or lesions noted GENERAL SKIN EXAM: no rashes or lesions noted Course Vital Signs: Vital signs: Vital Signs Temperature 97.7 F 08/02/20 00:11 Pulse Rate 88 08/02/20 01:35 Respiratory Rate 18 08/02/20 01:35 Blood Pressure 122/67 08/02/20 01:35 Pulse Oximetry 94 08/02/20 01:35 MDM - Abdominal Pain MDM Narrative: Medical decision making narrative: Patient comes in today for complaints of diarrhea. Patient reports has started this afternoon but seem to have worsened with more discomfort this evening. Exam no abdomen is soft with some hyperactive bowel sounds. Skin is warm and dry. Respirations are even lungs are clear to auscultation. Vital signs were normal. Differential diagnosis includes not limited to diverticulitis, colitis, bowel obstruction, gastroenteritis. CT and CMP were unremarkable except for some mild dehydration with a creatinine of 1.5 versus chronic kidney disease. Patient was given 1 L of IV fluids. CT scan was done for further evaluation and noted mild colitis but otherwise no signs of diverticulitis or other acute disease. Patient was given 1 dose of Cipro and dose of Flagyl to treat the colitis. Patient was given a dose of ketorolac 15 mg and 5 mg of Reglan for headache. Patient was then given 1 dose of Lomotil for complaints of abdominal cramping. We will continue on oral Flagyl and Cipro for 5 days. Patient reported understanding and agreed to plan. Lab Data: Labs: Lab Results 08/02/20 08/02/20 Range/Units 00:15 00:15 WBC 8.7 (4.0-10.0) 10^3/ uL RBC 4.33 (4.1-5.3) 10^6/u L Hgb 12.5 (11.5-15.3) g/dL Hct 37.1 (37.0-47.0) % MCV 85.7 (81-99) fL MCH 28.9 (28.0-34.0) pg MCHC 33.7 (30.0-36.0) g/dL RDW 12.4 (12.1-15.1) % Plt Count 236 (130-400) 10^3/c mm MPV 11.2 H (7.4-10.4) fL Neut % (Auto) 56.3 % Lymph % (Auto) 33.3 % [place] % (Auto) 6.8 % Eos % (Auto) 2.5 % Baso % (Auto) 0.8 % Neut # (Auto) 4.86 (1.8-7.7) 10^3/u L Lymph # (Auto) 2.9 (0.8-4.8) 10^3/u L [place] # (Auto) 0.6 (0.2-0.9) 10^3/u L Eos # (Auto) 0.2 (0.0-0.8) 10^3/u L Baso # (Auto) 0.1 (0.0-0.1) 10^3/u L Nucleated RBC % (a uto) 0 % Nucleated RBCs # 0.0 /100WBC Sodium 139 (136-145) mmol/L Potassium 4.2 (3.5-5.1) mmol/L Chloride 101 (98-107) mmol/L Carbon Dioxide 26 (22-29) mmol/L Anion Gap 16.2 (5-19) BUN 22 (8-23) mg/dL Creatinine 1.5 H (0.5-0.9) mg/dL GFR Calculation 34.9 L (90-130) mL/min Glucose 145 H (65-115) mg/dL Calculated Osmolal ity 294 (285-295) mOsm/k g Calcium 9.5 (8.5-10.5) mg/dL Total Bilirubin 0.3 (0.15-1.2) mg/dL AST 15 (0-32) U/L ALT 17 (0-33) U/L Alkaline Phosphata se 86 (35-105) IU/L Total Protein 6.9 (6.6-8.7) g/dL Albumin 3.9 (3.5-5.2) g/dL Globulin 3.0 (1.3-4.6) g/dL Lipase 85 H (13-60) U/L Discharge Plan Discharge Patient Disposition: Home Clinical Impression: Colitis Condition: Stable Prescriptions: New ciprofloxacin HCl 500 mg tablet 500 mg PO BID Qty: 10 RF: 0 metronidazole 500 mg tablet 500 mg PO BID Qty: 10 RF: 0 No Action (DME) Toe alignment splint Qty: 1 RF: 0 glimepiride 1 mg tablet 1 mg PO QAM RF: 0 simvastatin 20 mg tablet 20 mg PO DAILY RF: 0 aspirin [Adult Aspirin Regimen] 81 mg tablet,delayed release (DR/EC) 81 mg PO DAILY RF: 0 furosemide [Lasix] 40 mg tablet 40 mg PO DAILY RF: 0 lisinopril 20 mg tablet 20 mg PO DAILY RF: 0 amitriptyline 100 mg tablet 100 mg PO .HS Qty: 30 RF: 2 aripiprazole [Abilify] 2 mg tablet 2 mg PO DAILY Qty: 30 RF: 2 citalopram [Celexa] 20 mg tablet 20 mg PO DAILY Qty: 30 RF: 2 lorazepam 0.5 mg tablet 0.5 mg PO DAILY PRN (Reason: anxiety) Qty: 30 RF: 2 prazosin 1 mg capsule 1 mg PO DAILY Qty: 30 RF: 2 ropinirole 1 mg tablet 1 mg PO BID Qty: 60 RF: 2 zaleplon 5 mg capsule 5 mg PO .at bed Qty: 30 RF: 2 rivastigmine tartrate 4.5 mg capsule See Rx Instructions .ROUTE .COMPLEX Qty: 60 RF: 3 memantine [Namenda] 10 mg tablet 10 mg PO BID Qty: 60 RF: 0 Waldo 5-325 mg tablet 1 tab PO Q8H PRN (Reason: nasal bone fracture) Qty: 20 RF: 0 Discharge Orders: Discharge ED (Routine); Ordered 08/02/20 Ordered By: Bravo Fierro Referrals: Maritza Butterfield MD [Primary Care Provider] - Discharge Diet: Usual diet Discharge Activity: Increase activity as tolerated Patient Instructions: Infectious Colitis (ED) Activity Restrictions/Additional Instructions: Drink plenty of fluids. Use an electrolyte solution 8 ounces 3 times a day until diarrhea stops. Eat a bland diet. Follow-up with primary care for further treatment. Return to the emergency department for high fever, blood in vomit or stool, or new concerns. Coding Level of Care Code ED [employer] Trim for Kaity Sheridan Exam Comprehensive
[2020-08-02] MEDS: sodium chloride 0.9% 1,000 ML 999 ML IV (00:38)
[2020-08-02] MEDS: ketorolac 30 mg/mL INJ 15 MG IVP (00:38)
[2020-08-02] MEDS: metoclopramide 5 mg/mL SDV 2 mL IVP (00:39)
[2020-08-02 00:40] VITALS: BP 117/61; PULSE 62; RESP 16; O2SAT 96
[2020-08-02 00:40] LABS: Basophils # 0.1 10^3/uL (0.0-0.1); Basophils % 0.8 %; Eosinophils # 0.2 10^3/uL (0.0-0.8); Eosinophils % 2.5 %; Hematocrit 37.1 % (37.0-47.0); Hemoglobin 12.5 g/dL (11.5-15.3); Lymphocytes # 2.9 10^3/uL (0.8-4.8); Lymphocytes % 33.3 %; Mean Corpuscular HGB Conc 33.7 g/dL (30.0-36.0); Mean Corpuscular Hemoglobin 28.9 pg (28.0-34.0); Mean Corpuscular Volume 85.7 fL (81-99); Mean Platelet Volume 11.2 fL (7.4-10.4); Monocytes # 0.6 10^3/uL (0.2-0.9); Monocytes % 6.8 %; Neutrophils # 4.86 10^3/uL (1.8-7.7); Neutrophils % 56.3 %; Nucleated Red Blood Cells % 0 %; Platelet Count 236 10^3/cmm (130-400); Red Blood Count 4.33 10^6/uL (4.1-5.3); Red Cell Distribution Width 12.4 % (12.1-15.1); White Blood Count 8.7 10^3/uL (4.0-10.0)
[2020-08-02 00:50] LABS: Alanine Aminotransferase 17 U/L (0-33); Albumin Level 3.9 g/dL (3.5-5.2); Alkaline Phosphatase 86 IU/L (35-105); Anion Gap 16.2 (5-19); Aspartate Amino Transferase 15 U/L (0-32); Blood Urea Nitrogen 22 mg/dL (8-23); Calcium 9.5 mg/dL (8.5-10.5); Carbon Dioxide 26 mmol/L (22-29); Chloride 101 mmol/L (98-107); Creatinine Clr Calc Pharmacy 36.0154; Glomerular Filtration Rate 34.9 mL/min (90-130); Glucose 145 mg/dL (65-115); Lipase 85 U/L (13-60); Osmolality Calculated 294 mOsm/kg (285-295); Potassium 4.2 mmol/L (3.5-5.1); Sodium 139 mmol/L (136-145); Total Bilirubin 0.3 mg/dL (0.15-1.2); Total Protein 6.9 g/dL (6.6-8.7)
[2020-08-02] MEDS: iodixanol 320 mg/mL 100mL Btl IV (01:15)
[2020-08-02 01:35] VITALS: BP 122/67; PULSE 88; RESP 18; O2SAT 94
[2020-08-02] MEDS: ciprofloxacin 500 mg Tablet PO (01:55)
[2020-08-02] MEDS: metroNIDAZOLE 500 MG Tablet PO (01:55)
[2020-08-02] MEDS: diphenoxylate/atropine Tablet 2 TAB PO (01:56)
[2020-08-02 03:43] VITALS: BP 107/60; PULSE 68; RESP 18; O2SAT 92
== END 2020-08-02 03:43 | disposition home or self-care (01) ==
PROVIDERS: Emergency Provider Nurse Practitioner Family; PCP Family Medicine
DX: K52.9 Noninfective gastroenteritis and colitis, unspecified (principal); Z79.82 Long term (current) use of aspirin; I11.0 Hypertensive heart disease with heart failure; I50.9 Heart failure, unspecified; G30.0 Alzheimer's disease with early onset; F02.80 Dementia in other diseases classified elsewhere, unspecified severity, without behavioral disturbance, psychotic disturbance, mood disturbance, and anxiety; E11.9 Type 2 diabetes mellitus without complications
CPT/HCPCS: 12345; 74177; 80053; 83690; 85025; 96361; 96374; 96375; 99283; J1885; J2765; J7030; Q9967

== ENCOUNTER → 2020-09-29 11:41 | Outpatient (BNVA) | payer MEDICAID, SELFPAY | PROVIDERS: PCP Family Medicine; Visit Provider Specialist | DX: G30.9 Alzheimer's disease, unspecified (principal); F02.80 Dementia in other diseases classified elsewhere, unspecified severity, without behavioral disturbance, psychotic disturbance, mood disturbance, and anxiety | CPT/HCPCS: 96116; 99213 ==

== ENCOUNTER 2020-11-02 15:26 | Outpatient (CLI) | payer MEDICAID, SELFPAY ==
--- NOTE | 2020-11-02 15:39 | XR_ITS ---
WS: [id number] Exam: XR foot RT min 3V* [id number] Date/Time of Exam: 11/02/2020 4:17 PM Reason For Exam: RT. FOOT PAIN Comparison 11/25/2017. There is a healed fracture of the distal fifth metatarsal with pin fixation. No acute fracture or dis location noted. Degenerative changes in the midfoot joints. Hammertoe of the second digit. There is v arus deviation of the toes. No soft tissue foreign bodies. XR/XR foot RT min 3V* [id number] IMPRESSION: 1. No acute fracture or dislocation. 2. Old fracture of the distal fifth metatarsal with pin fixation. 3. Additional minor findings as discussed above.
== END 2020-11-02 15:27 | disposition home or self-care (01) ==
LOC: RAD 15:33
PROVIDERS: PCP Family Medicine; Visit Provider Nurse Practitioner Family
DX: M79.671 Pain in right foot (principal)
CPT/HCPCS: 73630

== ENCOUNTER 2022-07-20 11:41 | Outpatient (CLI) | payer MEDICAID, SELFPAY ==
--- NOTE | 2022-07-20 11:57 | MM_ITS ---
WS: [id number] BILATERAL SCREENING DIGITAL TOMOSYNTHESIS MAMMOGRAM WITH CAD HISTORY: SCREENING COMPARISON: 04/18/2019, 02/19/2018 and 02/03/2017 Bilateral CC and MLO views with tomosynthesis and synthetic mammography submitted. Computer aided det ection analyzed. Breast composition: There are scattered areas of fibroglandular density. No suspicious masses, microc alcifications or architectural distortion. Well-circumscribed 10 mm mass at 12:00 at a middle depth L EFT breast. Stable over multiple prior years. Additional bilateral benign calcifications and asymmetr ies are stable. MM/[place] [id number] IMPRESSION: BI-RADS: 2-Benign FOLLOW UP: 1 Year Follow-up
--- NOTE | 2022-07-20 13:03 | XR_ITS ---
WS: [id number] SCREENING DEXA SCAN [employer] CLINICAL INFORMATION: OSTEOPOROSIS SCREENING COMPARISON: None. FINDINGS: The L1-L4 bone mineral density measures 1.363 g/cm2. This corresponds to a T score score of 1.5 and Z score of 3.1. Left femoral neck bone mineral density measures 0.924 g/cm2. This corresponds to a T score of -0.7 an d Z score of 0.6. Right femoral neck bone mineral density measures 0.948 g/cm2. This corresponds to a T score -0.5of an d Z score of 0.8. Mean femoral neck bone mineral density measures 0.936 g/cm2. This corresponds to a T score of -0.6 an d Z score of 0.7. XR/XR DEXA axial skeleton* [id number] IMPRESSION: Normal bone mineralization Patient's FRAX calculated 10 year probability for major osteoporotic fracture i s 9.4 % and osteoporotic hip fracture is 1.1%.
== END 2022-07-20 11:42 | disposition home or self-care (01) ==
PROVIDERS: PCP Family Medicine; Visit Provider Family Medicine
DX: Z12.31 Encounter for screening mammogram for malignant neoplasm of breast (principal); Z13.820 Encounter for screening for osteoporosis
CPT/HCPCS: 77063; 77067; 77080

== ENCOUNTER → 2022-09-21 13:09 | Outpatient (BNVA) | payer MEDICAID, SELFPAY | PROVIDERS: PCP Family Medicine; Visit Provider Podiatrist Foot & Ankle Surgery | DX: E11.9 Type 2 diabetes mellitus without complications (principal); L84 Corns and callosities; M20.40 Other hammer toe(s) (acquired), unspecified foot | CPT/HCPCS: 11055; 99203 ==

== ENCOUNTER 2023-09-18 09:51 | Outpatient (CLI) | payer MEDICAID, SELFPAY ==
--- NOTE | 2023-09-18 09:54 | MM_ITS ---
WS: [id number] BILATERAL SCREENING DIGITAL TOMOSYNTHESIS MAMMOGRAM WITH CAD HISTORY: SCREENING COMPARISON: 07/20/2022 and 04/18/2019 Bilateral CC and MLO views with tomosynthesis and synthetic mammography submitted. Computer aided det ection analyzed. Breast composition: There are scattered areas of fibroglandular density. No suspicious masses, microc alcifications or architectural distortion. Long-term stability 9 mm mass 12:00 LEFT breast. Benign ca lcification also in the LEFT breast. IMPRESSION: MM/[place] [id number] BI-RADS: 2-Benign FOLLOW UP: 1 Year Follow-up
== END 2023-09-18 09:52 | disposition home or self-care (01) ==
LOC: RAD 09:51
PROVIDERS: PCP Family Medicine; Visit Provider Family Medicine
DX: Z12.31 Encounter for screening mammogram for malignant neoplasm of breast (principal)
CPT/HCPCS: 77063; 77067

== ENCOUNTER → 2023-09-20 14:02 | Outpatient (BNVA) | payer MEDICAID, SELFPAY | PROVIDERS: PCP Family Medicine; Visit Provider Podiatrist Foot & Ankle Surgery | DX: E11.8 Type 2 diabetes mellitus with unspecified complications (principal); L84 Corns and callosities; M20.41 Other hammer toe(s) (acquired), right foot | CPT/HCPCS: 99213 ==

== ENCOUNTER → 2023-11-29 14:53 | Outpatient (BNVA) | payer MEDICAID, SELFPAY | PROVIDERS: PCP Family Medicine; Visit Provider Specialist | DX: F03.90 Unspecified dementia, unspecified severity, without behavioral disturbance, psychotic disturbance, mood disturbance, and anxiety (principal) | CPT/HCPCS: 99203; 99204 ==

== ENCOUNTER → 2023-12-07 09:54 | Outpatient (BNVA) | payer MEDICAID, SELFPAY | PROVIDERS: PCP Family Medicine; Referring Provider Family Medicine; Visit Provider Surgery | DX: Z12.11 Encounter for screening for malignant neoplasm of colon (principal) | CPT/HCPCS: 99024; 99204 ==

== ENCOUNTER 2024-03-06 10:18 | Day surgery (SDC) | payer MEDICAID, SELFPAY ==
[2024-03-06 10:35] VITALS: BP 140/70; PULSE 67; RESP 18; TEMP 36.2; O2SAT 97
[2024-03-06 10:49] LABS: Glucose Point of Care 201 mg/dL (70-110)
[2024-03-06] MEDS: sodium chloride 0.9% 1,000 ML 30 ML IV (10:53)
--- NOTE | 2024-03-06 11:25 | ANES.PREANE2 ---
Pre-Anesthetic Assessment Height/Weight: Height 1.59 m Weight 86.183 kg Temp Pulse Resp BP Pulse Ox O2 Del Method 97.1 F L 67 18 140/70 97 Room Air 03/06/24 10:35 03/06/24 10:35 03/06/24 10:35 03/06/24 10:35 03/06/24 10:35 03/06/24 10:35 Preop Diagnosis: screening Operation Date: 03/06/24 11:20 Proposed Procedures p Colonoscopy 98501, G0121, Z12.11(Not Applicable) - Brady Harry DO Familial anesthetic complications: none Was Beta Donna taken within 24 hours: N/A Was Clonidine taken within 24 hours: N/A Last intake: Intake Last Liquid Date 03/05/24 Last Liquid Time 22:00 Last Solid Date 03/04/24 Last Solid Time 18:00 Social No alcohol and No tobacco Exam alert and oriented x 3 Airway Submandibular: within normal limits Cervical ROM: within normal limits Mallampati: Class II Dentition: false (some teeth on bottom- none loose) History/ROS No significant history except as noted Pulmonary None reported CV/HEM Congestive Heart Failure and Hypertension on plavix. unknown reason. stopped on 03/01 according to records from living facility None reported Hepatic None reported Metabolic Diabetes Mellitus, Hyperlipidemia and Morbid Obesity [facility] None reported Neuropsych Dementia alzheimers Anesthetic Plan ASA status: 3 Anesthesia: Anesthesia Evaluation, General and MAC Risk of > 500 ml blood loss (7ml/kg in children): No Medications/Allergies Home Medications Medication Instructions Recorded Confirmed Last Taken Type glimepiride 1 mg tablet 1 mg PO QAM 07/15/19 03/04/24 03/05/24 History Toe alignment splint #1 ea 08/19/19 03/04/24 03/05/24 Rx aspirin 81 mg tablet,delayed 81 mg PO DAILY 01/15/20 03/04/24 03/04/24 History release (Adult Aspirin Regimen) furosemide 40 mg tablet (Lasix) 40 mg PO DAILY 01/15/20 03/04/24 03/05/24 History lisinopril 20 mg tablet 20 mg PO DAILY 01/15/20 03/04/24 03/05/24 History amitriptyline 100 mg tablet 100 mg PO .HS #30 tabs 01/21/20 03/04/24 03/05/24 Rx aripiprazole 2 mg tablet (Abilify) 2 mg PO DAILY #30 tabs 01/21/20 03/04/24 03/05/24 Rx citalopram 20 mg tablet (Celexa) 20 mg PO DAILY #30 tabs 01/21/20 03/04/24 03/05/24 Rx lorazepam 0.5 mg tablet 0.5 mg PO DAILY PRN anxiety #30 01/21/20 03/06/24 03/05/24 Rx tabs prazosin 1 mg capsule 1 mg PO DAILY #30 caps 01/21/20 03/04/24 03/05/24 Rx ropinirole 1 mg tablet 1 mg PO BID #60 tabs 01/21/20 03/04/24 03/05/24 Rx zaleplon 5 mg capsule 5 mg PO .at bed #30 caps 01/21/20 03/04/24 03/05/24 Rx hydrocodone 5 mg-acetaminophen 325 1 tab PO Q8H PRN nasal bone 06/27/20 03/06/24 03/05/24 Rx mg tablet ([place]) fracture #20 tabs rivastigmine tartrate 4.5 mg See Rx Instructions .Route 09/29/20 03/04/24 03/05/24 Rx capsule .COMPLEX #60 caps donepezil 5 mg tablet (Aricept) 5 mg PO DAILY #30 tabs 03/16/21 03/04/24 03/05/24 Rx urea 40 % topical cream 1 applic topical BID #28.35 grams 09/21/22 03/04/24 03/05/24 Rx memantine 10 mg tablet See Rx Instructions .Route 11/21/23 03/04/24 03/05/24 Rx .COMPLEX #60 tabs amlodipine 5 mg tablet 5 mg PO DAILY 03/04/24 03/04/24 03/05/24 History carvedilol 12.5 mg tablet 12.5 mg PO DAILY 03/04/24 03/04/24 03/05/24 History clopidogrel 75 mg tablet 75 mg PO DAILY 03/04/24 03/06/24 03/01/24 History dapagliflozin propanediol 10 mg 10 mg PO DAILY 03/04/24 03/04/24 03/05/24 History tablet (Farxiga) dulaglutide 4.5 mg/0.5 mL 4.5 mg SUBCUT .WEEKLY 03/04/24 03/04/24 03/05/24 History subcutaneous pen injector (Trulicity) metformin 1,000 mg tablet 1,000 mg PO BID 03/04/24 03/04/24 03/05/24 History omeprazole 20 mg capsule,delayed 20 mg PO DAILY 03/04/24 03/04/24 03/05/24 History release simvastatin 40 mg tablet 40 mg PO DAILY 03/04/24 03/04/24 03/05/24 History Allergies Allergy/AdvReac Type Severity Reaction Status Date / Time No Known Allergies Allergy Verified 12/07/23 10:08 Current Medications Generic Name Dose Route Start Last Admin Trade Name Freq PRN Reason Stop Dose Admin Sodium Chloride 1,000 mls @ 30 mls/hr 03/06/24 10:30 03/06/24 10:53 Sodium Chloride 0.9% IV 03/07/24 10:29 30 mls/hr .Q24H JIMMY Administration PFSH Anesthesia Medical History Type 2 diabetes mellitus CHF (congestive heart failure) Early onset Alzheimer's dementia Hypertension Unspecified dementia without behavioral disturbance Post-traumatic stress disorder, chronic Surgical History H/O removal of cyst History of partial hysterectomy Family History Sister Cancer does not remember the kind Social History Smoking and tobacco/nicotine status: never used tobacco/nicotine Alcohol intake: never Substance/Drug Use: never Current occupational status: unemployed Data Anesthesia Cardiac Studies: No Data to Display
--- NOTE | 2024-03-06 12:46 | P.HP_ITS ---
Providers/Chief Complaint Primary Care Provider: Jason Smart MD Chief Complaint: Z12.11 History of Present Illness Stacie Patten is a 68 year old female Review of Systems General: Reports: 10 or more systems reviewed and unremarkable except in HPI and below Medications/Allergies Home Medications Medication Instructions Recorded Confirmed Last Taken Type glimepiride 1 mg tablet 1 mg PO QAM 07/15/19 03/04/24 03/05/24 History Toe alignment splint #1 ea 08/19/19 03/04/24 03/05/24 Rx aspirin 81 mg tablet,delayed 81 mg PO DAILY 01/15/20 03/04/24 03/04/24 History release (Adult Aspirin Regimen) furosemide 40 mg tablet (Lasix) 40 mg PO DAILY 01/15/20 03/04/24 03/05/24 History lisinopril 20 mg tablet 20 mg PO DAILY 01/15/20 03/04/24 03/05/24 History amitriptyline 100 mg tablet 100 mg PO .HS #30 tabs 01/21/20 03/04/24 03/05/24 Rx aripiprazole 2 mg tablet (Abilify) 2 mg PO DAILY #30 tabs 01/21/20 03/04/24 03/05/24 Rx citalopram 20 mg tablet (Celexa) 20 mg PO DAILY #30 tabs 01/21/20 03/04/24 03/05/24 Rx lorazepam 0.5 mg tablet 0.5 mg PO DAILY PRN anxiety #30 01/21/20 03/06/24 03/05/24 Rx tabs prazosin 1 mg capsule 1 mg PO DAILY #30 caps 01/21/20 03/04/24 03/05/24 Rx ropinirole 1 mg tablet 1 mg PO BID #60 tabs 01/21/20 03/04/24 03/05/24 Rx zaleplon 5 mg capsule 5 mg PO .at bed #30 caps 01/21/20 03/04/24 03/05/24 Rx hydrocodone 5 mg-acetaminophen 325 1 tab PO Q8H PRN nasal bone 06/27/20 03/06/24 03/05/24 Rx mg tablet ([place]) fracture #20 tabs rivastigmine tartrate 4.5 mg See Rx Instructions .Route 03/03/04/24 03/05/24 Rx capsule .COMPLEX #60 caps donepezil 5 mg tablet (Aricept) 5 mg PO DAILY #30 tabs 03/16/21 03/04/24 03/05/24 Rx urea 40 % topical cream 1 applic topical BID #28.35 grams 09/21/22 03/04/24 03/05/24 Rx memantine 10 mg tablet See Rx Instructions .Route 11/21/23 03/04/24 03/05/24 Rx .COMPLEX #60 tabs amlodipine 5 mg tablet 5 mg PO DAILY 03/04/24 03/04/24 03/05/24 History carvedilol 12.5 mg tablet 12.5 mg PO DAILY 03/04/24 03/04/24 03/05/24 History clopidogrel 75 mg tablet 75 mg PO DAILY 03/04/24 03/06/24 03/01/24 History dapagliflozin propanediol 10 mg 10 mg PO DAILY 03/04/24 03/04/24 03/05/24 History tablet (Farxiga) dulaglutide 4.5 mg/0.5 mL 4.5 mg SUBCUT .WEEKLY 03/04/24 03/04/24 03/05/24 History subcutaneous pen injector (Trulicity) metformin 1,000 mg tablet 1,000 mg PO BID 03/04/24 03/04/24 03/05/24 History omeprazole 20 mg capsule,delayed 20 mg PO DAILY 03/04/24 03/04/24 03/05/24 History release simvastatin 40 mg tablet 40 mg PO DAILY 03/04/24 03/04/24 03/05/24 History Allergies Allergy/AdvReac Type Severity Reaction Status Date / Time No Known Allergies Allergy Verified 12/07/23 10:08 PFSH Acute PFSH: Medical History Type 2 diabetes mellitus CHF (congestive heart failure) Early onset Alzheimer's dementia Hypertension Unspecified dementia without behavioral disturbance Post-traumatic stress disorder, chronic Surgical History H/O removal of cyst History of partial hysterectomy Family History Sister Cancer does not remember the kind Social History Smoking and tobacco/nicotine status: never used tobacco/nicotine Alcohol intake: never Substance/Drug Use: never Current occupational status: unemployed Vitals/I&O/Wt Last Vital Signs Temp 97.1 F L 03/06/24 10:35 Pulse 67 03/06/24 10:35 Resp 18 03/06/24 10:35 BP 140/70 03/06/24 10:35 Pulse Ox 97 03/06/24 10:35 O2 Del Method Room Air 03/06/24 10:35 Weight last 48 hrs Weight 190 lb A&P Assessment and plan (1) Colon cancer screening: Plan Colonoscopy Attestations Medical Necessity Statement*: Home Coding Level of Care Code Acute Code for Chg Fwd Diagnoses Colon cancer screening Z12.11
[2024-03-06 13:18] VITALS: BP 118/57; PULSE 77; RESP 18; TEMP 36.1; O2SAT 92
[2024-03-06 13:31] VITALS: BP 122/66; PULSE 67; RESP 16; O2SAT 96
--- NOTE | 2024-03-06 13:38 | ANE.PACU2 ---
Inpatient post-anesthesia follow up: Airway intact: Yes Vital signs: Temperature 97 F Pulse Rate 67 Respiratory Rate 16 Blood Pressure 122/66 Pulse Oximetry 96 Oxygen Delivery Me thod Room Air Oxygen Flow Rate Fraction of Inspir ed Oxygen Hydration adequate: Yes Nausea and vomiting: No Pain level: 1 Mental status: Baseline
== END 2024-03-06 14:05 | disposition home or self-care (01) ==
PROVIDERS: PCP Family Medicine; Visit Provider Surgery
PROC: 0DJD8ZZ Inspection of Lower Intestinal Tract, Via Natural or Artificial Opening Endoscopic (ICD-10-PCS; CPT 45378; principal; 2024-03-06 11:20)
DX: Z12.11 Encounter for screening for malignant neoplasm of colon (principal); E11.9 Type 2 diabetes mellitus without complications; I11.0 Hypertensive heart disease with heart failure; I50.9 Heart failure, unspecified; F03.90 Unspecified dementia, unspecified severity, without behavioral disturbance, psychotic disturbance, mood disturbance, and anxiety; K57.30 Diverticulosis of large intestine without perforation or abscess without bleeding; E66.01 Morbid (severe) obesity due to excess calories; Z68.34 Body mass index [BMI] 34.0-34.9, adult; Z79.84 Long term (current) use of oral hypoglycemic drugs
CPT/HCPCS: 36416; 45378; 82962; J2704; J7030

== ENCOUNTER → 2024-08-02 09:03 | Outpatient (BNVA) | payer MEDICAID, SELFPAY | PROVIDERS: PCP Family Medicine; Visit Provider Specialist | DX: G30.9 Alzheimer's disease, unspecified (principal); F02.80 Dementia in other diseases classified elsewhere, unspecified severity, without behavioral disturbance, psychotic disturbance, mood disturbance, and anxiety | CPT/HCPCS: 99213 ==

== ENCOUNTER 2024-09-18 09:34 | Outpatient (CLI) | payer MEDICAID, SELFPAY ==
--- NOTE | 2024-09-18 09:41 | MM_ITS ---
WS: [id number] BILATERAL SCREENING DIGITAL TOMOSYNTHESIS MAMMOGRAM WITH CAD HISTORY: SCREENING COMPARISON: 09/18/2023, 07/20/2022, 02/03/2017 and 02/19/2018 Bilateral CC and MLO views with tomosynthesis and synthetic mammography submitted. Computer aided detection analyzed. Breast composition: There are scattered areas of fibroglandular density. No suspicious masses, microcalcifications or architectural distortion. Scattered asymmetries and bilateral breast masses are stable. Additional coarse benign calcifications. MM/MM scr BI tomosynthesis [id number] IMPRESSION: BI-RADS: 2 - Benign. FOLLOW UP: 1 Year Follow-up
== END 2024-09-18 09:35 | disposition home or self-care (01) ==
LOC: RAD 09:38
PROVIDERS: PCP Family Medicine; Visit Provider Family Medicine
DX: Z12.31 Encounter for screening mammogram for malignant neoplasm of breast (principal); R92.323 Mammographic fibroglandular density, bilateral breasts; N64.89 Other specified disorders of breast; N63.20 Unspecified lump in the left breast, unspecified quadrant; N63.10 Unspecified lump in the right breast, unspecified quadrant; R92.1 Mammographic calcification found on diagnostic imaging of breast
CPT/HCPCS: 77063; 77067

== ENCOUNTER → 2024-09-19 13:51 | Outpatient (BNVA) | payer MEDICAID, SELFPAY | PROVIDERS: PCP Family Medicine; Visit Provider Podiatrist Foot & Ankle Surgery | DX: E11.8 Type 2 diabetes mellitus with unspecified complications (principal); L84 Corns and callosities; M20.41 Other hammer toe(s) (acquired), right foot; Z79.84 Long term (current) use of oral hypoglycemic drugs | CPT/HCPCS: 99213 ==

== ENCOUNTER → 2025-03-23 12:23 | Outpatient (BNVA) | payer MEDICAID, SELFPAY | PROVIDERS: PCP Family Medicine; Visit Provider Emergency Medicine | DX: M19.011 Primary osteoarthritis, right shoulder (principal) | CPT/HCPCS: 73030 ==

== ENCOUNTER 2025-05-19 10:06 | Emergency (ER) | payer MEDICARE, MEDICAID, SELFPAY ==
--- NOTE | 2025-05-19 10:22 | CT_ITS ---
WS: [id number] CT ABDOMEN AND PELVIS NONCONTRAST HISTORY: abdominal pain TECHNIQUE: Imaging performed through the abdomen and pelvis. Coronal and sagittal reformats are submitted. All CT scans at [facility] use at least one of these dose optimization techniques: automated exposure control; mA and/or kV adjustment per patient size (includes targeted exams where dose is matched to clinical indication); or iterative reconstruction. DLP: 426.75 mGy.cm COMPARISON: 08/02/2020 Lower thorax: Lung bases are clear. Visualized heart is normal. No hiatal hernia. Liver: Low-attenuation throughout the liver from hepatic steatosis. No mass or intrahepatic duct dilatation. Gallbladder: Prior cholecystectomy. Pancreas: Normal size and attenuation. Normal pancreatic duct. No pancreatitis or mass. Spleen: Normal. Adrenal glands: Normal. No mass. Right kidney: Normal size kidney with mild perinephric stranding. No renal obstruction. Left kidney: Normal size kidney with mild perinephric stranding. Nonobstructing 3 mm calcification. Cortical hypodensity 1.2 cm lower pole. Aorta: Mild atherosclerosis abdominal aorta with no aneurysm. No free fluid, intraperitoneal air or significant lymphadenopathy. GI tract: No GI tract obstruction. Stomach is not distended. No small bowel obstruction. No evidence for acute pancreatitis. Mild diverticular burden in the descending and sigmoid colon. Lumen is narrowed but there is no acute diverticulitis. Abdominal wall: Negative. No hernia. Pelvis: No free fluid. No free fluid or mass in the pelvis. Urinary bladder is not distended. Osseous structures: Unremarkable. CT/CT abdomen pelvis wo con [id number] IMPRESSION: 1. No acute abdominal or pelvic abnormalities are identified. 2. No GI tract obstruction. 3. Distal colon diverticulosis without acute diverticulitis. 4. Mild bilateral perinephric stranding. This can be seen with acute urinary t ract infections or be chronic. 5. Normal size liver with hepatic steatosis. 6. Prior cholecystectomy.
--- NOTE | 2025-05-19 10:22 | W.ED.ABDPA2 ---
HPI - Abdominal Pain General: Chief Complaint: Abdominal Pain Stated Complaint: pain in abd Time Seen by Provider: 05/19/25 10:14 Source: patient and family Mode of arrival: wheelchair Limitations: no limitations History of Present Illness: Patient is a 69-year-old male with a history of Alzheimer's, hypertension, diabetes, CHF among others here with her significant other for complaints of abdominal pain. Significant other provides the majority of history. He states patient has been complaining of left-sided abdominal pain over the past week or so. Over the past week they have been seen twice at other facilities outside of [facility]. He states she was initially diagnosed with shingles as she had a rash to the left side of her torso. He believes she was placed on antiviral medication as well as pain medication. He states they were seen again due to the abdominal pain and diagnosed with constipation and told to take MiraLAX. She was apparently seen by her home health nurse this morning who recommended they come to the emergency department due to complaint of continued abdominal pain. She also had some diarrhea this morning. No black or bloody stools. She has not had any vomiting. No fevers. MD elicited complaint: abdominal pain Pertinent past history: none Onset (ago): week(s) Pain Consistency: constant Location: LUQ and LLQ Severity: moderate Quality: aching and sharp Radiation: none Migration to: no migration Exacerbating factors: nothing Relieving factors: nothing Associated Symptoms: Reports diarrhea; Denies chills, dysuria, fever(s), heartburn, nausea, syncope and vomiting Related Data Home Medications ?Medication ?Instructions ?Recorded ?Confirmed aspirin 81 mg tablet,delayed 81 mg PO DAILY 01/15/20 05/19/25 release (Adult Aspirin Regimen) furosemide 40 mg tablet (Lasix) 40 mg PO QAM 01/15/20 05/19/25 amlodipine 5 mg tablet 5 mg PO DAILY 03/04/24 05/19/25 carvedilol 12.5 mg tablet 12.5 mg PO BID 03/04/24 05/19/25 clopidogrel 75 mg tablet 75 mg PO QAM 03/04/24 05/19/25 Held on 03/06/24. Instructions: Resume on 03/07/24. dapagliflozin propanediol 10 mg 10 mg PO QAM 03/04/24 05/19/25 tablet (Farxiga) dulaglutide 4.5 mg/0.5 mL 4.5 mg SUBCUT .WEEKLY 03/04/24 05/19/25 subcutaneous pen injector (Trulicity) metformin 1,000 mg tablet 1,000 mg PO BID 03/04/24 05/19/25 omeprazole 20 mg capsule,delayed 20 mg PO DAILY PRN Acid Reflux 03/04/24 05/19/25 release simvastatin 40 mg tablet 40 mg PO BEDTIME 03/04/24 05/19/25 diphenhydramine 25 1 - 2 tab PO BEDTIME PRN Sleep 05/19/25 05/19/25 mg-acetaminophen 500 mg tablet (Acetaminophen PM) lisinopril 40 mg tablet 40 mg PO DAILY 05/19/25 05/19/25 memantine 10 mg tablet 10 mg PO BID 05/19/25 05/19/25 tramadol 50 mg tablet 25 mg PO TID PRN Pain 05/19/25 05/19/25 triamcinolone acetonide 0.1 % 1 applic topical BID PRN Skin 05/19/25 05/19/25 topical cream Irritation valacyclovir 1 gram tablet 1,000 mg PO TID 05/19/25 05/19/25 Previous Rx's ?Medication ?Instructions ?Recorded Toe alignment splint #1 ea 08/19/19 ibuprofen 600 mg tablet 600 mg PO TID PRN pain #30 tabs 03/23/25 ciprofloxacin HCl 500 mg tablet 500 mg PO Q12H #14 tabs 05/19/25 (Cipro) tramadol 50 mg tablet 50 mg PO Q8H PRN pain #15 tabs 05/19/25 Allergies Allergy/AdvReac Type Severity Reaction Status Date / Time No Known Allergies Allergy Verified 05/19/25 10:27 Review of Systems Const: Denies: fever(s), chills, body aches, fatigue or malaise Eyes: Denies: change in vision or blurry vision Card: Denies: chest pain, palpitations, irregular heart rhythm, lightheadedness, syncope or dyspnea on exertion Resp: Denies: dyspnea, productive cough or pain on inspiration GI: Reports: abdominal pain and diarrhea; Denies: nausea, vomiting or heartburn : Denies: flank pain, difficulty voiding, dysuria or urinary frequency Musc: Denies: neck pain, back pain, extremity pain, extremity swelling or joint pain Skin/Breast: Reports: rash Neuro: Denies: headache(s), numbness in extremities, weakness in extremities, sensory changes or dizziness PFSH ED PFSH: Medical History (Reviewed 05/19/25 @ 10: by VU Lemus) Type 2 diabetes mellitus CHF (congestive heart failure) Early onset Alzheimer's dementia Hypertension Unspecified dementia without behavioral disturbance Post-traumatic stress disorder, chronic Surgical History (Reviewed 05/19/25 @ 10: by VU Lemus) H/O removal of cyst History of partial hysterectomy Family History (Reviewed 05/19/25 @ 10: by VU Lemus) Sister Cancer does not remember the kind Social History (Reviewed 05/19/25 @ : by VU Lemus) Smoking and tobacco/nicotine status: never used tobacco/nicotine Alcohol intake: never Substance/Drug Use: never Current occupational status: unemployed Physical Exam Const: COMMON NORMALS: no acute distress, average body habitus, patient oriented x3, no limitations, alert and well nourished GENERAL APPEARANCE: cooperative ORIENTATION/CONSCIOUSNESS: Yes awake, Yes oriented to person and Yes oriented to place HENMT: COMMON NORMALS: normocephalic and atraumatic HEAD & SCALP: normal to inspection, normocephalic and atraumatic Neck/C-Spine: COMMON NORMALS: full ROM, no lymphadenopathy, supple and no meningeal signs Chest: OTHER: patient does have a drying/healing dermatomal rash consistent with zoster to the L side of her back wrapping around her chest wall Resp: COMMON NORMALS: normal respiratory effort and clear to auscultation bilaterally AUSCULTATION: clear to auscultation bilaterally Cardio: COMMON NORMALS: regular rate and regular rhythm RATE: regular rate RHYTHM: regular rhythm GI: COMMON NORMALS: Normal to inspection, nondistended, normoactive bowel sounds present, Soft to palpation, No hepatosplenomegaly present and no masses INSPECTION: Yes normal to inspection AUSCULTATION: Yes normoactive bowel sounds PALPATION: Yes Soft to palpation, Yes Tenderness to palpation present (GI) (diffusely), Yes Guarding due to palpation present (GI), No Rigid due to palpation and Yes No hepatosplenomegaly present : COMMON NORMALS: Yes no CVA tenderness BLADDER/KIDNEY EXAM: Yes no CVA tenderness Back/Pelvis: COMMON NORMALS: no CVA tenderness and thoracic and lumbar spine normal to inspection Extremity: COMMON NORMALS: normal to inspection GENERAL: Yes normal exam except as noted Neuro: COMMON NORMALS: patient oriented x3, moves all extremities, no focal motor deficits and no sensory deficits noted SENSORIUM/ORIENTATION: Yes alert, Yes oriented to person and Yes oriented to place MENINGEAL SIGNS: Yes no meningeal signs Skin: NARRATIVE SKIN EXAM: see above; L sided torso zoster rash RASHES: rashes noted Course ED course: Based on her history, I would suspect symptoms are neuropathic related to her recent herpes zoster however she does have generalized abdominal pain on exam with guarding. I will order labs/imaging to evaluate for other pathology especially since patient overall is a poor historian with her Alzheimer's. Vital Signs: Vital signs: Vital Signs Temperature 97.4 F L 05/19/25 10:24 Pulse Rate 82 05/19/25 12:27 Blood Pressure 138/76 05/19/25 12:27 Pulse Oximetry 96 05/19/25 12:27 Oxygen Delivery Me thod Room Air 05/19/25 10:24 MDM - Abdominal Pain Medical Decision Making Patient is 69-year-old female presents to ED today complaining of left-sided abdominal pain. She was recently diagnosed with shingles to the left side of her torso and placed on valacyclovir and tramadol for pain. She was not placed on steroids. Initially I felt symptoms most likely were secondary to neuropathic shingles pain however she seemed to be more so diffusely tender during abdominal examination thus labs/CT imaging was ordered to rule out other pathology. Blood work overall is nonactionable. She does have minor elevations to her creatinine at 1.3. This seems pretty close to baseline. Nonspecific mild elevation to her lipase that is chronic. UA appears suspicious for infection with a cloudy appearance, 2+ leukocyte esterase, 21-50 WBCs. This was a clean-catch with no contamination. CT imaging obtained showing no acute abnormalities. She did have some mild bilateral perinephric stranding. Given her UA results we will go ahead and cover for her urinary tract infection with ciprofloxacin. She is requesting additional tramadol as she will be out in the next 1 to 2 days so this will be provided as well. Recommend patient follow-up with her primary care provider later this week for reevaluation. Differential Diagnosis Likely abdominal pain, constipation, diverticulitis and gastroenteritis Medical Records I reviewed the patient's medical records. Lab Data I reviewed the patient's lab results. 05/19/25 10:43 05/19/25 10:43 Labs/Radiology: Radiology Impressions Abdomen/Pelvis CT 05/19/25 10:22 IMPRESSION: 1. No acute abdominal or pelvic abnormalities are identified. 2. No GI tract obstruction. 3. Distal colon diverticulosis without acute diverticulitis. 4. Mild bilateral perinephric stranding. This can be seen with acute urinary tract infections or be chronic. 5. Normal size liver with hepatic steatosis. 6. Prior cholecystectomy. Laboratory Results WBC 12.35 10^3/uL (3.29-11.43) H 05/19/25 10:43 RBC 4.79 10^6/uL (3.85-5.65) 05/19/25 10:43 Hgb 13.60 g/dL (11.27-16.99) 05/19/25 10:43 Hct 38.9 % (36-47) 05/19/25 10:43 MCV 81.2 fl (85-98) L 05/19/25 10:43 MCH 28.4 pg (27-33) 05/19/25 10:43 MCHC 35.0 g/dL (30-55) 05/19/25 10:43 RDW 12.8 % (12.1-15.1) 05/19/25 10:43 Plt Count 252 10^3/cmm (157-399) 05/19/25 10:43 MPV 11.0 fL (7.4-10.4) H 05/19/25 10:43 Neut % (Auto) 80.4 % 05/19/25 10:43 Lymph % (Auto) 14.4 % 05/19/25 10:43 [place] % (Auto) 4.1 % 05/19/25 10:43 Eos % (Auto) 0.3 % 05/19/25 10:43 Baso % (Auto) 0.4 % 05/19/25 10:43 Neut # (Auto) 9.92 10^3/uL (1.8-7.7) H 05/19/25 10:43 Lymph # (Auto) 1.8 10^3/uL (0.8-4.8) 05/19/25 10:43 [place] # (Auto) 0.5 10^3/uL (0.2-0.9) 05/19/25 10:43 Eos # (Auto) 0.0 10^3/uL (0.0-0.8) 05/19/25 10:43 Baso # (Auto) 0.1 10^3/uL (0.0-0.1) 05/19/25 10:43 Nucleated RBC % (auto) 0 % 05/19/25 10:43 Nucleated RBCs # 0.0 /100WBC 05/19/25 10:43 Sodium 135 mmol/L (136-145) L 05/19/25 10:43 Potassium 3.6 mmol/L (3.5-5.1) 05/19/25 10:43 Chloride 98 mmol/L (98-107) 05/19/25 10:43 Carbon Dioxide 22 mmol/L (22-29) 05/19/25 10:43 Anion Gap 18.6 (5-19) 05/19/25 10:43 BUN 15 mg/dL (8-23) 05/19/25 10:43 Creatinine 1.3 mg/dL (0.5-0.9) H 05/19/25 10:43 GFR Calculation 40.5 mL/min (90-130) L 05/19/25 10:43 Glucose 231 mg/dL (65-115) H 05/19/25 10:43 Calculated Osmolality 288 mOsm/kg (285-295) 05/19/25 10:43 Calcium 9.0 mg/dL (8.5-10.5) 05/19/25 10:43 Total Bilirubin 0.4 mg/dL (0.15-1.2) 05/19/25 10:43 AST 12 U/L (0-32) 05/19/25 10:43 ALT 10 U/L (0-33) 05/19/25 10:43 Alkaline Phosphatase 76 U/L (35-105) 05/19/25 10:43 Total Protein 6.9 g/dL (6.6-8.7) 05/19/25 10:43 Albumin 4.2 g/dL (3.5-5.2) 05/19/25 10:43 Globulin 2.7 g/dL (1.3-4.6) 05/19/25 10:43 Lipase 97 U/L (13-60) H 05/19/25 10:43 Urine Color Yellow (Yellow) 05/19/25 11:56 Urine Appearance Cloudy (CLEAR) A 05/19/25 11:56 Urine pH 5.0 (5-7) 05/19/25 11:56 Ur Specific [place] 1.018 (1.005-1.030) 05/19/25 11:56 Urine Protein Trace (Negative) A 05/19/25 11:56 Urine Glucose (UA) 2+ (Normal) H 05/19/25 11:56 Urine Ketones Negative (Negative) 05/19/25 11:56 Urine Blood Negative (Negative) 05/19/25 11:56 Urine Nitrate Negative (Negative) 05/19/25 11:56 Urine Bilirubin Negative (Negative) 05/19/25 11:56 Urine Urobilinogen 0.2 mg/dL (Negative) 05/19/25 11:56 Ur Leukocyte Esterase 2+ (Negative) A 05/19/25 11:56 Urine RBC 0-2 /hpf (0-2) 05/19/25 11:56 Urine WBC 21-50 /hpf (0-5) H 05/19/25 11:56 Ur Squamous Epith Cells 0-5 /hpf (0-5) 05/19/25 11:56 Amorphous Sediment Not Reportable 05/19/25 11:56 Urine Bacteria Trace /hpf (NONE) 05/19/25 11:56 Hyaline Casts 12.81 /lpf 05/19/25 11:56 All radiology interpretation(s) finalized by discharge Discharge Plan Discharge Patient Disposition: Home Clinical Impression: Acute UTI Shingles Qualifiers: Herpes zoster complications: without complications Qualified Code(s): B02.9 - Zoster without complications Condition: Stable Prescriptions: New ciprofloxacin HCl [Cipro] 500 mg tablet 500 mg PO Q12H Qty: 14 0RF tramadol 50 mg tablet 50 mg PO Q8H PRN (Reason: pain) Qty: 15 0RF No Action (DME) Toe alignment splint Qty: 1 0RF Rx Instructions: As directed aspirin [Adult Aspirin Regimen] 81 mg tablet,delayed release (DR/EC) 81 mg PO DAILY furosemide [Lasix] 40 mg tablet 40 mg PO QAM ibuprofen 600 mg tablet 600 mg PO TID PRN (Reason: pain) Qty: 30 0RF Rx Instructions: take with food valacyclovir 1 gram tablet 1,000 mg PO TID tramadol 50 mg tablet 25 mg PO TID PRN (Reason: Pain) triamcinolone acetonide 0.1 % cream 1 applic TOPICAL BID PRN (Reason: Skin Irritation) diphenhydramine-acetaminophen [Acetaminophen PM] 25-500 mg Tablet 1 - 2 tab PO BEDTIME PRN (Reason: Sleep) Rx Instructions: administer while awake lisinopril 40 mg tablet 40 mg PO DAILY memantine 10 mg tablet 10 mg PO BID clopidogrel 75 mg tablet 75 mg PO QAM carvedilol 12.5 mg tablet 12.5 mg PO BID amlodipine 5 mg tablet 5 mg PO DAILY simvastatin 40 mg tablet 40 mg PO BEDTIME metformin 1,000 mg tablet 1,000 mg PO BID omeprazole 20 mg capsule,delayed release(DR/EC) 20 mg PO DAILY PRN (Reason: Acid Reflux) dapagliflozin propanediol [Farxiga] 10 mg tablet 10 mg PO QAM Trulicity 4.5 mg/0.5 mL pen injector 4.5 mg SUBCUT .WEEKLY Discharge Orders: Discharge ED (Routine); Ordered 05/19/25 Ordered By: Melissa Johnson Referrals: Jason Smart MD [Primary Care Provider, Family Practice] Patient Instructions: Abdominal Pain (ED), Opioid Safety, Pain Management, Patient Portal & Sorin Instructions Activity Restrictions/Additional Instructions: As we discussed, her urine looks suspicious for urinary tract infection so I am placing her on antibiotics for this. We will culture her urine for definitive confirmation. Will provide her additional pain medications to help with the discomfort from her shingles. I would like her to follow-up with primary care later this week for reevaluation. She may return to the emergency department at anytime for any further concerns she may have. We did discuss elevations in her kidney labs as well as her lipase that seem to be chronic. These can continue to be followed up through primary care. Print Language: Greek Coding Level of Care Code ED Web Developer Programmer for Kaity Sheridan
--- OUTSIDE RECORDS SUMMARY | 2025-05-19 10:23 | XMS_ITS | Data Portability ---
Author Organization [facility] Address [address] [place] [id number] Care Team Providers Care Brine Tank Tender Name Role Phone LAWSON MILLS Primary Care Provider [phone] Assessment No assessment recorded. Plan of Treatment Reminders Order Date Submit Date Provider Last Modified By Organization Details Last Modified Time Details Appointments None recorded. Lab None recorded. Referral None recorded. Procedures None recorded. Surgeries None recorded. Imaging XR, abdomen, 1 view 2024 025 [email or web address] 2 [facility], [address] [place], [address], 16:30:02 Medication Orders polyethylen e glycol 3350 17 gram/dose oral powder [address] [id number], [address], [address], 14:25:31 Patient TargetsNo targets recorded. Patient InstructionsNo instructions recorded. Reason for Referral None Reported. Results Created Date Observation Date Name Description Value Unit Range Abnormal Flag Note LastModifiedBy Organization Detail LastModifiedTime 05/08/2005/08/2025 XR, abdom en, 1 view No observ ation record ed. [facility] [address] [place], [address], 05/10/2025 12:15:41 Result Notes None recorded. Medical Equipment None Reported. Allergies No known drug allergies Medications Name Sig Start Date Stop Date Status Note LastModified by Organization Details LastModified Time furosemide 40 mg tablet TAKE 1 TABLET BY MOUTH EVERY DAY IN THE MORNING active Not Available Not Available No t Available carvedilol 12.5 mg tablet TAKE 1 TABLET BY MOUTH TWICE A DAY active Not Available Not Available No t Available clopidogrel 75 mg tablet TAKE 1 TABLET BY MOUTH EVERY DAY active Not Available Not Available No t Available amlodipine 5 mg tablet TAKE 1 TABLET BY MOUTH EVERY DAY active Not Available Not Available No t Available aspirin 81 mg tablet,delay ed release TAKE 1 TABLET BY MOUTH EVERY DAY active Not Available Not Available No t Available triamcinolon e acetonide 0.1 % topical cream APPLY 1 A SMALL AMOUNT TO AFFECTED AREA TWICE A DAY NEEDED FOR RASH active Not Available Not Available No t Available simvastatin 40 mg tablet TAKE 1 TABLET BY MOUTH EVERY DAY AT NIGHT active Not Available Not Available No t Available metformin 1,000 mg tablet TAKE 1 TABLET BY MOUTH TWICE A DAY active Not Available Not Available No t Available omeprazole 20 mg capsule,amanda yed release TAKE 1 CAPSULE BY MOUTH EVERY DAY active Not Available Not Available No t Available polyethylene glycol 3350 17 gram/dose oral powder Take 17 g every day by oral route. 2024 active Not Available Not Available Not Avai lable lisinopril 40 mg tablet TAKE 1 TABLET BY MOUTH EVERY DAY active Not Available Not Available No t Available memantine 10 mg tablet TAKE 1 TABLET BY MOUTH TWICE A DAY active Not Available Not Available No t Available Farxiga 10 mg tablet TAKE 1 TABLET BY MOUTH EVERY DAY active Not Available Not Available No t Available Trulicity 3 mg/0.5 mL subcutaneous pen injector INJECT 3 MG SUBCUTANEOU SLY ONCE A WEEK USE FOR 1 MONTH UNTIL 4.5MG DOSE IS AVAILABLE active Not Available Not Available No t Available Trulicity 4.5 mg/0.5 mL subcutaneous pen injector INJECT 4.5 MG SUBCUTANEOU SLY ONCE A WEEK active Not Available Not Available No t Available Vitals Date Recorded Body height Body mass index (BMI) Body weight Oxygen saturation Oxygen saturation in Arterial blood by Pulse oximetry Heart rate Body temperature Systolic And Diastolic Provider Name and Address Organization Details Last Updated DateTime 5 160.02 cm 25.2 kg/m2 60773.1 2 g 98 % 98 % 76 /min 97.6 [degF] 115/60 mm[Hg] Snehal Mccain [facility]CFidel[facility] 5 13:33:50 Social History Question Answer Notes LastModified by Organizat ion Details LastModified Time Tobacco Smoking Status Never Smoker Snehal nunez [facility], .L.. 05/08/2025 13:29:24 What Was The Date Of Your Most Recent Tobacco Screening? 05/08/2025 [email or web address] Information not available 05/08/2025 Sex: Unknown Functional Status None recorded. Mental Status None recorded. Family History Nothing Reported. Medical History No medical history recorded. Gynecological HistoryNo gynecological history recorded. Obstetrics History GPAL:G 0 P 0 0 0 0 Immunizations Vaccine Type Date Status Note Provider Nam e and Address Organization Details Recorded Time influenza, split (incl. purified surface antigen) 1 completed Not Available [facility] 05/08/2025 13:19:31 Influenza, split virus, trivalent, preservative 2 completed Not Available [facility] 05/08/2025 13:19:31 Influenza, split virus, quadrivalent, preservative 6 completed Not Available [facility] 05/08/2025 13:19:31 Influenza, split virus, trivalent, preservative 1 completed Not Available [facility] 05/08/2025 13:19:31 Influenza, split virus, quadrivalent, PF 1 completed Not Available [facility] 05/08/2025 13:19:31 pneumococcal polysaccharide PPV23 1 completed Not Available [facility] 05/08/2025 13:19:31 Influenza, split virus, quadrivalent, PF 2 completed Not Available [facility] 05/08/2025 13:19:31 Influenza, split virus, trivalent, PF 4 completed Not Available [facility] 05/08/2025 13:19:31 Past Encounters Encounter ID Performer Location Encounter Start Date Encounter Closed Date Diagnosis/Indication Diagnosis SNOMED-CT Code Diagnosis ICD10 Code Diagnosis IMO Codes Diagnosis Note [id number] LAURO LUNA [facility] ([facility]) [address] [place] [address] 05/08/2025 13:18:27 05/08/2025 14:49:34 Left upper quadrant pain 166320941 R10.12 [id number] Chronic constipation 236 905250 K59.09 [id number] Patient presents with constipati on. Recommend increasing oral fluids with non-caffei nated beverages. Increase daily dietary fiber. May drink prune juice or pear juice to initiate bowel regularity and then decrease as needed to maintain a once daily or every other day bowel habit. Tylenol may be used as needed for cramping. RTC with any new or worsening symptoms. Health Concerns Section Related Observation LastModified by Organization Detai ls LastModified Time None Recorded Concern Status LastModified by Organization Details LastModified Time None Recorded Advance Directives Directive None Recorded Payers Insurance Date Sequence Insurance Name Policy Number Policy Pitt[place] Covered Member ID Pittman Member ID Guarantor Name 05/08/2025 1 [place] Stacie S Earline [id number] Stacie Patten 05/08/2025 2 [place] Stacie Patten [id number] Stacie Patten 05/09/2025 [place] - [facility] (MEDICARE) Stacie Mihai Earline [id number] Stacie Patten 05/09/2025 [place] [facility] Stacie Patten [id number] Stacie Patten Notes Date Note Type Note Provider Name and Address Organization Details Recorded Time 05/08/2025 text/html ROS as noted in the HPI walk inx2 days pain in LUQ- diarrhea, nausea. Patient states that she has loss of appetite. Patient states that she is unsure of time of last bowel movement. LAURO LUNA [address] [place], [address], [facility] 05/08/2025 14:25:49 OBGyn Episode No OBEpisode recorded.
--- OUTSIDE RECORDS SUMMARY | 2025-05-19 10:23 | XMS_ITS | Clinical Summary ---
[facility] Organization [facility] Address [address] Dent: Epic Prelude ADT [place]ERS[place] [id number] Care Team Providers Care Mainframe Architect Name Role Phone Maritza Butterfield MD Primary Care Provider Allergies No known active allergies Medications rivastigmine tartrate (EXELON) 4.5 mg capsule Take 4.5 mg by mouth 2 times daily. 9 Active lisinopriL (PRINIVIL) 20 mg tablet Take 20 mg by mouth daily. Active zaleplon (SONATA) 5 mg capsule Take 5 mg by mouth daily at bedtime. Active carvediloL (COREG) 6.25 mg tablet Take 6.25 mg by mouth 2 times daily with meals. Active aspirin (FREYA) 325 mg tablet Take 325 mg by mouth daily. Active furosemide (LASIX) 40 mg tablet Take 40 mg by mouth daily. Active ALBUTEROL INHALATION Take by inhalation. Active prazosin (MINIPRESS) 1 mg capsule Take 1 mg by mouth daily at bedtime. Active spironolactone (ALDACTONE) 25 mg tablet Take 25 mg by mouth daily. 9 Active simvastatin (ZOCOR) 40 mg tablet Take 40 mg by mouth daily with supper. Active donepeziL (ARICEPT) 10 mg tablet Take 10 mg by mouth daily at bedtime. Active amitriptyline (ELAVIL) 50 mg tablet Take 50 mg by mouth daily at bedtime. 9 Active lisinopril-hydroC HLOROthiazide (ZESTORETIC) 20-25 mg tablet Take 1 Tablet by mouth daily. 9 Active rOPINIRole (REQUIP) 1 mg tablet Take 1 mg by mouth 3 times daily. 9 Active raNITIdine (ZANTAC) 150 mg tablet Take 150 mg by mouth 2 times daily. 9 Active citalopram (CeleXA) 20 mg tablet Take 20 mg by mouth daily at bedtime. 9 Active memantine (NAMENDA) 10 mg Tablet Take 10 mg by mouth 2 times daily. 9 Active LORazepam (ATIVAN) 0.5 mg tablet Take 0.5 mg by mouth every 6 hours as needed for Anxiety. 9 Active ARIPiprazole (ABILIFY) 2 mg tablet Take 2 mg by mouth daily. 9 Active metFORMIN (GLUCOPHAGE) 1,000 mg tablet Take 1,000 mg by mouth 2 times daily with meals. 9 Active glimepiride (AMARYL) 4 mg tablet Take 4 mg by mouth daily with breakfast. 9 Active omeprazole (PriLOSEC) 20 mg Capsule, Delayed Release(E.C.) TAKE 1 CAPSULE BY MOUTH EVERY DAY 0 Active glipiZIDE (GLUCOTROL XL) 2.5 mg Extended Release 24 hour tablet Take 2.5 mg by mouth daily. 0 Active carvediloL (COREG) 12.5 mg tablet TAKE 1 TABLET BY MOUTH TWICE A DAY 0 Active aspirin (ECOTRIN EC) 81 mg Tablet, Delayed Release (E.C.) Take 81 mg by mouth daily. 0 Active clopidogreL (PLAVIX) 75 mg Tablet TAKE 1 TABLET EVERY DAY 0 Active exenatide microspheres (Bydureon) 2 mg/0.65 mL Pen Injector INJECT ONE PEN UNDER THE SKIN ONCE WEEKLY. 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 Family History Medical History Relation Name Comments Dementia Mother Relation Name Status Comments Father Mother Social History Tobacco Use Types Packs/Day Years Used Date Smoking Tobacco: Never Smokeless Tobacco: Never Alcohol Use Standard Drinks/Week Comments Never 0 (1 standard drink = 0.6 oz pur e alcohol) Comments Unknown Sex and Gender Information Value Date Recorded Sex Assigned at Not on file Legal Sex Female 8:09 PM ENROLLMENT CLERK Gender Identity Not on file Sexual Orientation Not on file Last Filed Vital Signs Vital Sign Reading Time Taken Comments Blood Pressure 161/79 07/09/2020 11:28 AM ENROLLMENT CLERK Pulse 60 07/09/2020 11:28 AM ENROLLMENT CLERK Temperature - - Respiratory Rate - - Oxygen Saturation - - Inhaled Oxygen Concentration - - Weight 69.4 kg (153 lb) 07/09/2020 11:28 AM ENROLLMENT CLERK Height 160 cm (5' 3 ) 07/09/2020 11:28 AM ENROLLMENT CLERK Body Mass Index 27.1 07/09/2020 11:28 AM ENROLLMENT CLERK Plan of Treatment Health Maintenance Due Date Last Done Comments DTAP/TDAP/TD VACCINES (1 - Tdap) 1973 BREAST CANCER SCREENING 1994 COLORECTAL SCREENING 10/13/1999 Colorectal Cancer Screening 10/13/1999 FIT-DNA Q 3 years 10/13/1999 FIT/FOBT Q 1 year 10/13/1999 Flex Sig/CT Colonography Q 5 years 10/13/1999 PNEUMOCOCCAL VACCINE 50+ YEARS (1 of 1 - PCV) 10/13/19 05 ZOSTER VACCINE (1 of 2) 2004 OSTEOPOROSIS SCREENING 10/13/2019 INFLUENZA VACCINE (#1) 2025 RSV VACCINE (60+ or ) (1 - 1-dose 75+ series) 2029 Care Teams Mainframe Architect Relationship Specialty Start Date End Date Maritza Butterfield MD [address] [place] [id number] PCP - General Family Practice 11/28/18
--- OUTSIDE RECORDS SUMMARY | 2025-05-19 10:23 | XMS_ITS | Clinical Summary ---
Author Organization [facility] Address [address] [place] [address] Care Team Providers Care Scout Leaser Name Role Phone Maritza Butterfield MD Primary Care Provider Allergies No known active allergies Medications rivastigmine tartrate (EXELON) 4.5 mg capsule Take 4.5 mg by mouth 2 times daily. Active prazosin (MINIPRESS) 1 mg capsule Take 1 mg by mouth daily at bedtime. Active zaleplon (SONATA) 5 mg capsule Take 5 mg by mouth daily at bedtime. Active lisinopril (PRINIVIL) 20 mg tablet Take 20 mg by mouth daily. Active ALBUTEROL INHALATION Take by inhalation. Active aspirin (FREYA) 325 mg tablet Take 325 mg by mouth daily. Active carvedilol (COREG) 6.25 mg tablet Take 6.25 mg by mouth 2 times daily with meals. Active furosemide (LASIX) 40 mg tablet Take 40 mg by mouth daily. Active spironolactone (ALDACTONE) 25 mg tablet Take 25 mg by mouth daily. Active simvastatin (ZOCOR) 40 mg tablet Take 40 mg by mouth daily with supper. Active donepezil (ARICEPT) 10 mg tablet Take 10 mg by mouth daily at bedtime. Active lisinopril-hydr oCHLOROthiazide (ZESTORETIC) 20-25 mg tablet Take 1 Tablet by mouth daily. Active raNITIdine (ZANTAC) 150 mg tablet Take 150 mg by mouth 2 times daily. Active memantine (NAMENDA) 10 mg Tablet Take 10 mg by mouth 2 times daily. Active ARIPiprazole (ABILIFY) 2 mg tablet Take 2 mg by mouth daily. Active amitriptyline (ELAVIL) 50 mg tablet Take 50 mg by mouth daily at bedtime. Active citalopram (CeleXA) 20 mg tablet Take 20 mg by mouth daily at bedtime. Active glimepiride (AMARYL) 4 mg tablet Take 4 mg by mouth daily with breakfast. Active LORazepam (ATIVAN) 0.5 mg tablet Take 0.5 mg by mouth every 6 hours as needed for Anxiety. Active metFORMIN (GLUCOPHAGE) 1,000 mg tablet Take 1,000 mg by mouth 2 times daily with meals. Active rOPINIRole (REQUIP) 1 mg tablet Take 1 mg by mouth 3 times daily. Active carvediloL (COREG) 12.5 mg tablet TAKE 1 TABLET BY MOUTH TWICE A DAY 06/29/2020 Active aspirin (ECOTRIN EC) 81 mg Tablet, Delayed Release (E.C.) Take 81 mg by mouth daily. 06/03/2020 Active clopidogreL (PLAVIX) 75 mg Tablet TAKE 1 TABLET EVERY DAY 06/03/2020 Active Bydureon 2 mg/0.65 mL Pen Injector INJECT ONE PEN UNDER THE SKIN ONCE WEEKLY. 06/23/2020 Active glipiZIDE (GLUCOTROL XL) 2.5 mg Extended Release 24 hour tablet Take 2.5 mg by mouth daily. 06/03/2020 Active omeprazole (PriLOSEC) 20 mg Capsule, Delayed Release(E.C.) TAKE 1 CAPSULE BY MOUTH EVERY DAY 06/29/2020 Active Active Problems Problem Noted Date Diagnosed [...] at Not on file Legal Sex Female 12:35 PM STORYBOARD ARTIST Gender Identity Not on file Sexual Orientation Not on file Last Filed Vital Signs Vital Sign Reading Time Taken Comments Blood Pressure 161/79 07/09/2020 11:28 AM STORYBOARD ARTIST Pulse 60 07/09/2020 11:28 AM STORYBOARD ARTIST Temperature - - Respiratory Rate - - Oxygen Saturation - - Inhaled Oxygen Concentration - - Weight 69.4 kg (153 lb) 07/09/2020 11:28 AM STORYBOARD ARTIST Height 160 cm (5' 3 ) 07/09/2020 11:28 AM STORYBOARD ARTIST Body Mass Index 27.1 07/09/2020 11:28 AM STORYBOARD ARTIST Plan of Treatment Health Maintenance Due Date [...] ) (1 - 1-dose 75+ series) 2029 Insurance MEDICAID [place] Care Teams Scout Leaser Relationship Specialty Start Date End Date Maritza Butterfield MD [address] [place] [id number] PCP - General Family Practice 11/28/18
[2025-05-19 10:24] VITALS: BP 101/63; PULSE 72; TEMP 36.3; O2SAT 99
[2025-05-19 11:18] LABS: Hematocrit 38.9 % (36-47); Hemoglobin 13.60 g/dL (11.27-16.99); Mean Corpuscular HGB Conc 35.0 g/dL (30-55); Mean Corpuscular Hemoglobin 28.4 pg (27-33); Mean Corpuscular Volume 81.2 fl (85-98); Nucleated Red Blood Cells % 0 %; Platelet Count 252 10^3/cmm (157-399); Red Blood Count 4.79 10^6/uL (3.85-5.65); White Blood Count 12.35 10^3/uL (3.29-11.43)
[2025-05-19 11:41] LABS: Alanine Aminotransferase 10 U/L (0-33); Albumin Level 4.2 g/dL (3.5-5.2); Alkaline Phosphatase 76 U/L (35-105); Anion Gap 18.6 (5-19); Aspartate Amino Transferase 12 U/L (0-32); Blood Urea Nitrogen 15 mg/dL (8-23); Calcium 9.0 mg/dL (8.5-10.5); Carbon Dioxide 22 mmol/L (22-29); Chloride 98 mmol/L (98-107); Creatinine Clr Calc Pharmacy 34.6791; Globulin 2.7 g/dL (1.3-4.6); Glucose 231 mg/dL (65-115); Lipase 97 U/L (13-60); Osmolality Calculated 288 mOsm/kg (285-295); Potassium 3.6 mmol/L (3.5-5.1); Sodium 135 mmol/L (136-145); Total Protein 6.9 g/dL (6.6-8.7)
--- NOTE | 2025-05-19 12:06 | PC.PHAR ---
Pt has home health care nurse Dena, come once weekly on to set up her medications. She is from [facility]. [phone]
[2025-05-19 12:12] LABS: Glucose Urine UA 2+ (Normal); Nitrate Urine Negative (Negative); Specific Gravity, Urine 1.018 (1.005-1.030)
[2025-05-19 12:21] LABS: Add Urine Microscopic? YES; Universal Test for UA Present (0)
[2025-05-19 12:27] VITALS: BP 138/76; PULSE 82; O2SAT 96
[2025-05-19 13:04] VITALS: BP 138/76; PULSE 72; O2SAT 97
== END 2025-05-19 13:08 | disposition home or self-care (01) ==
PROVIDERS: Emergency Provider Physician Assistant; PCP Family Medicine
DX: N39.0 Urinary tract infection, site not specified (principal); B02.9 Zoster without complications; Z79.82 Long term (current) use of aspirin; Z79.02 Long term (current) use of antithrombotics/antiplatelets; Z79.84 Long term (current) use of oral hypoglycemic drugs; Z79.85 Long-term (current) use of injectable non-insulin antidiabetic drugs; E11.9 Type 2 diabetes mellitus without complications; I11.0 Hypertensive heart disease with heart failure; I50.9 Heart failure, unspecified
CPT/HCPCS: 36415; 74176; 80053; 81001; 83690; 85025; 87077; 87086; 87186; 99284